=== PATIENT | male | born 1940 | race Caucasian/White ===

== ENCOUNTER 2016-04-24 16:53 | Inpatient (IN) | payer MEDICARE ==
--- NOTE | 2016-04-24 17:52 | RAD ---
INDICATION: Chest pain COMPARISON: Chest x-ray dated April 13, 2016 TECHNIQUE: Single AP portable view of the chest was obtained. FINDINGS: Image quality is compromised due to the relative inferiority of a portable chest x-ray. There appears to be mild cardiomegaly not significantly changed in the previous chest x-ray. There is fullness of the bilateral betsy more advanced at the right hilum than the left. The lungs are grossly clear. There is no evidence of a large pleural effusion. Visualized bones are normal for the patient's age. IMPRESSION: Mild cardiomegaly and right greater than left fullness of the betsy could be due to early and mild cardiogenic pulmonary edema.
[2016-04-24 17:56] LABS: Hematocrit 41 % (42-52); Hemoglobin 13.4 g/dl (14.0-18.0); Mean Corpuscular HGB Conc 33 g/dl (31-36); Mean Corpuscular Hemoglobin 28 pg (27-31); Mean Corpuscular Volume 86 fL (80-94); Mean Platelet Volume 7 um3 (7.4-10.4); Red Blood Count 4.76 10^6/ul (4.0-5.4); Red Cell Distribution Width 15 % (10.5-15); White Blood Count 11.6 10^3/ul (3.5-10.8)
[2016-04-24 18:13] LABS: BUN/Creatinine Ratio 23.9 (8-20); Calcium 10.2 mg/dL (8.6-10.3); EGFR African American 84.4 (>60); EGFR Non-African American 65.6 (>60); Potassium 3.8 mmol/L (3.5-5.0); Total Protein 7.5 g/dL (6.4-8.9)
[2016-04-24 18:14] LABS: Globulin 3.5 g/dL (2-4); Total Bilirubin 0.6 mg/dL (0.2-1.0)
[2016-04-24] MEDS ORDERED: Ondansetron INJ* 2 MG/ML VIAL ONE (18:14)
[2016-04-24] MEDS ORDERED: Ondansetron INJ* 2 MG/ML VIAL IV ONE (18:14)
[2016-04-24] MEDS ORDERED: NS 0.9% 1000 ML* 1,000 ML IV ONE ×2 (18:14→18:16)
[2016-04-24 18:16] LABS: Troponin I 0.01 ng/mL (<0.04)
[2016-04-24] MEDS ORDERED: Iodixanol* (CONTRAST) 320 MG/ML 100 ML SDV IV ONE (18:23)
--- NOTE | 2016-04-24 19:26 | RAD ---
CLINICAL HISTORY: Abdominal pain. Relevant surgical history includes "part of intestines removed" and prostatectomy. COMPARISON: Numerous previous CT examinations, most recently dated January 26, 2016 TECHNIQUE: Contrast enhanced CT examination of the abdomen and pelvis from the lung bases through the initial tuberosities. The patient received mL intravenously prior to imaging.The patient received oral contrast as well prior to imaging. FINDINGS: VISUALIZED LUNG BASES: The visualized lung bases are grossly clear. There is no pleural effusion. ABDOMEN AND PELVIS: The left lobe of the liver there is a stable 1.2 x 1.9 cm hypodensity not significantly changed since at least July 10, 2012. The liver is homogenous in attenuation the surface is smooth. The spleen and adrenal glands are grossly normal in appearance. Again seen in the tail the pancreas is a 11 mm low-density focus unchanged from the most recent CT examination and slightly larger when compared to July 10, 2012 CT examination. The gallbladder is normal. The kidneys are normal in appearance without focal mass, calcification or signs of hydronephrosis. Benign-appearing fluid density renal cysts are noted. No oral contrast has progressed as far as the rectum. The small and large bowel are not distended. The patient appears to be status post partial right colectomy. There are diverticula beginning in the descending colon, most concentrated the rectosigmoid colon. No the diverticula exhibit acute inflammatory changes. There is no gross retroperitoneal or mesenteric lymphadenopathy. Surgical clips are seen in the prostate bed consistent with the patient's history of prostatectomy. The mildly calcified abdominal aorta and iliac arteries are normal in course and diameter. Degenerative changes include multilevel loss of intervertebral disc height involving the lower thoracic and lumbar spine.There are no sinister bone lesions. IMPRESSION: 1. No acute abnormality of the abdomen or pelvis. 2. Diverticulosis without acute inflammatory change. 3. Very slowly growing cystic lesion in the tail the pancreas most consistent with a mucinous neoplasm. 4. Additional chronic, degenerative and iatrogenic findings as described in the body of the report.
--- NOTE | 2016-04-24 20:08 | RAD ---
INDICATION: Right upper quadrant pain COMPARISONS: Same day CT abdomen pelvis dated April 24, 2016 TECHNIQUE: Multiple transverse and longitudinal ultrasound images were obtained of the right upper quadrant. FINDINGS: LIVER: The liver is normal in dimensions and echogenicity. Normal hepatic and portal venous blood flow is duplicated with color flow imaging. There is no gross intrahepatic biliary duct dilatation. GALLBLADDER AND EXTRAHEPATIC BILIARY DUCT: The gallbladder is normal in appearance without intraluminal stones or other soft tissue masses. There is no pericholecystic fluid or gallbladder wall thickening. The common bile duct measures a maximum diameter of 3 mm. PANCREAS: The portions of the pancreas not obscured by bowel gas are normal in appearance. RIGHT KIDNEY: The right kidney is normal in size, morphology and echogenicity. An anechoic and avascular 1.9 cm renal cyst is noted. AORTA AND IVC: The visualized portions are normal in appearance and not pathologically dilated. IMPRESSION: NO ACUTE ABNORMALITY OF THE RIGHT UPPER QUADRANT.
--- NOTE | 2016-04-24 20:59 | RAD ---
INDICATION: Altered mental status COMPARISON: Multiple previous brain CTs, most recently dated April 13, 2016 TECHNIQUE: Contiguous axial sections of the brain were obtained from the skull base to the vertex without contrast. FINDINGS: The ventricles, cisterns and sulci exhibit stable involutional changes not significantly changed from the previous brain CT. There is moderate to severe periventricular and subcortical white matter hypoattenuation also similar in appearance to the previous CT of the brain. Otherwise the brown-white matter differentiation is adequately maintained and there is no sulcal effacement. No significant focal abnormality or mass effect is present. There is no evidence for intracranial hemorrhage. Calcified atherosclerosis is seen at the vertebral arteries in the bilateral petrous carotid arteries. No significant focal osseous abnormality is present. There is coarse lobulated calcification in the left greater than right frontal sinuses. The remaining visualized paranasal sinuses are well-aerated. The mastoid air cells are adequately aerated. IMPRESSION: Stable degenerative changes as described above without CT evidence of acute intracranial abnormality.
[2016-04-24] MEDS ORDERED: Al Hydrox/Mg Hydrox/Simet LIQ* 30 ML UDC PO PRN (22:13)
[2016-04-24] MEDS ORDERED: Senna TAB PO PRN (22:13)
[2016-04-24] MEDS ORDERED: Ondansetron INJ* 2 MG/ML VIAL IV PRN (22:13)
[2016-04-24] MEDS ORDERED: Docusate CAP* 100 MG PO PRN (22:13)
[2016-04-24] MEDS ORDERED: Dextrose 50% Syringe 50 ML* 25 GM/50 ML SYRINGE IV PUSH PRN (22:16)
[2016-04-24] MEDS ORDERED: LORazepam TAB(*) 0.5 MG PO PRN (22:17)
[2016-04-24 22:55] LABS: TSH (Thyroid Stimulating Horm) 1.69 mcIU/mL (0.34-5.60)
[2016-04-24 23:07] LABS: Urine Bacteria Absent (Absent); Urine Bilirubin Negative (Negative); Urine Glucose Negative (Negative); Urine Nitrite Negative (Negative)
[2016-04-24] MEDS: DULoxetine DR CAP* 60 MG CAP.DR PO SCH ×2 (23:19→23:50)
[2016-04-24] MEDS: Insulin GLARGINE(*) 1 UNITS UNIT SUBCUT SCH (23:24)
[2016-04-25] MEDS: CMCS Melatonin (NF) 3 MG TAB PO SCH ×2 (00:06→20:53)
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
[2016-04-25] MEDS: traMADol TAB* 50 MG PO PRN ×2 (02:28→18:27)
[2016-04-25] MEDS: Gabapentin CAP(*) 300 MG PO SCH ×2 (03:56→20:54)
[2016-04-25] MEDS: Insulin LISPRO* 1 UNITS UNIT SUBCUT SCH ×4 (08:51→17:36)
[2016-04-25] MEDS: Metoprolol Tartrate TAB* 25 MG PO SCH ×2 (09:48→20:54)
[2016-04-25] MEDS: amLODIPine TAB* 5 MG PO SCH (09:48)
[2016-04-25] MEDS: Omeprazole CAP* 20 MG PO SCH ×2 (09:49→20:53)
--- NOTE | 2016-04-25 14:40 | PN ---
Subjective Date of Service: 04/25/16 Interval History: Pt was noted to be agitated at home and brought in to ED. this aM, pleasant, conversational, but confused with minimal ability to follow commands. Pt c/o b/l shoulder pain with movement. Objective Active Medications: Acetaminophen (Tylenol Tab*) 650 mg PO Q4H PRN PRN Reason: FEVER/PAIN Al Hydrox/Mg Hydrox/Simethicone (Maalox Plus*) 30 ml PO Q6H PRN PRN Reason: INDIGESTION Amlodipine Besylate (Norvasc Tab*) 10 mg PO DAILY [facility] Last Admin: 04/25/16 09:48 Dose: 10 mg Dextrose (D50w Syringe 50 Ml*) 12.5 gm IV PUSH .FOR FS < 60 - SS PRN PRN Reason: FS < 60 Docusate Sodium (Colace Cap*) 100 mg PO BID PRN PRN Reason: CONSTIPATION Duloxetine HCl (Cymbalta Cap*) 60 mg PO BEDTIME [facility] Last Admin: 04/24/16 23:50 Dose: Not Given Gabapentin (Neurontin Cap(*)) 300 mg PO BEDTIME [facility] Last Admin: 04/25/16 03:56 Dose: 300 mg Insulin Glargine (Lantus(*)) 20 units SUBCUT 2100 [facility] Last Admin: 04/24/16 23:24 Dose: 20 unit Insulin Human Lispro (Humalog*) 0 units SUBCUT AC [facility] PRN Reason: Protocol Last Admin: 04/25/16 13:00 Dose: 2 units Melatonin (Melatonin (Nf)) 3 mg PO BEDTIME [facility] Last Admin: 04/25/16 00:06 Dose: Not Given Metoprolol Tartrate (Lopressor Tab*) 25 mg PO BID [facility] Last Admin: 04/25/16 09:48 Dose: 25 mg Omeprazole (Prilosec Cap*) 20 mg PO BID [facility] Last Admin: 04/25/16 09:49 Dose: 20 mg Ondansetron HCl (Zofran Inj*) 4 mg IV Q4H PRN PRN Reason: NAUSEA/VOMITING Senna (Senokot Tab*) 1 tab PO BID PRN PRN Reason: CONSTIPATION Tramadol HCl (Ultram*) 50 mg PO Q6H PRN PRN Reason: PAIN Last Admin: 04/25/16 02:28 Dose: 50 mg Vital Signs 04/24/16 04/24/16 04/24/16 22:44 22:53 23:00 Temperature 98 F 98 F 97.9 F Pulse Rate 73 73 72 Respiratory 16 16 16 Rate Blood Pressure 130/84 147/78 (mmHg) O2 Sat by Pulse 98 95 Oximetry 04/24/16 04/25/16 04/25/16 23:06 02:28 03:18 Temperature 97.8 F Pulse Rate 76 Respiratory 16 18 18 Rate Blood Pressure 137/67 (mmHg) O2 Sat by Pulse 91 Oximetry 04/25/16 04/25/16 04/25/16 03:56 04:28 07:16 Temperature Pulse Rate 88 Respiratory 16 16 16 Rate Blood Pressure 153/79 (mmHg) O2 Sat by Pulse 95 Oximetry 04/25/16 07:56 Temperature Pulse Rate Respiratory 16 Rate Blood Pressure (mmHg) O2 Sat by Pulse Oximetry Oxygen Devices in Use Now: None Appearance: 76 yo M in [facility], stated that his age is 79 yo, not aware of location , 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 Eyes: No Scleral Icterus, PERRLA Ears/Nose/Mouth/Throat: NL Teeth, Lips, Gums, Mucous Membranes Moist Neck: NL Appearance and Movements; NL JVP, Trachea Midline Respiratory: Symmetrical Chest Expansion and Respiratory Effort, Clear to Auscultation Cardiovascular: NL Sounds; No Murmurs; No JVD, RRR Abdominal: NL Sounds; No Tenderness; No Distention, No Hepatosplenomegaly Lymphatic: No Cervical Adenopathy Extremities: No Edema, No Clubbing, Cyanosis Skin: No Rash or Ulcers, No Nodules or Sclerosis Neurological: - - pt has difficulty following commands and refused to raise his legs off bed Result Diagrams: 04/24/16 17:41 04/24/16 17:41 Assess/Plan/Problems-Billing Assessment: Mr. Salcedo is a 76 yo male with PMH of dementia, CKD, Diabetes, HTN who had a mechanical fall and sustained a right shoulder dislocation and small ventricle bleed in 03/2016, discharged home on 04/16/2016 presents back with more confusion and h/o episodes od agitation. - Patient Problems (1) Dementia Comment: rapidly progressing, in the past 3 months. ESR >90, asked neurology to see pt in consult. PT/OT eval for placement in [facility] pending (2) Diabetes Comment: Resume home medications. (3) DVT prophylaxis Comment: SCDs due to h/o recent ICH. (4) Hypertension Comment: SBP 130-150s. Continue amlodipine, metoprolol, and HCTZ. (5) Intraductal papillary mucinous neoplasm of pancreas Comment: mildly increased in size c/w CT in 2012 for outpatient f/u with GI
[2016-04-25] MEDS ORDERED: Insulin LISPRO* 1 UNITS UNIT SUBCUT SCH (17:03)
--- NOTE | 2016-04-25 19:50 | CONS ---
CONSULTATION REPORT: DATE: 04/25/2016. PATIENT OF: Dr. Richard and Dr. Foy. HISTORY OF PRESENT ILLNESS: This is a 76-year-old man I am asked to evaluate for relatively rapid progressive dementia. He was diagnosed shortly before , but has had a rapid decrease in mental status since then and he has been violent as well and has had decreased understanding. He has also lost 15 pounds in the past few months' time and he is becoming increasingly difficult to take care of. PAST MEDICAL HISTORY: He has history of diabetes, hypertension, hyperlipidemia , history of prostate cancer, diverticulitis, GERD, chronic abdominal pain. He has fallen recently and had a small right lateral ventricular hemorrhage. MEDICATIONS: Include: 1. Lorazepam 0.5 to 1 at bedtime. 2. Amlodipine 10 daily. 3. Aspirin 81 mg daily. 4. Colace 100 b.i.d. 5. Glipizide 10 mg daily. 6. Hydrochlorothiazide 25 daily. 7. Lantus 30 to 35 at bedtime. 8. Metformin 1000 b.i.d. 9. Metoprolol 50 b.i.d. 10. Omeprazole 40 mg daily. 11. Tramadol 50 to 100 q.6 hours p.r.n. pain. 12. Zolpidem 1 tab as needed. 13. Gabapentin 300 at bedtime. 14. Cymbalta 60 at bedtime. ALLERGIES: He is allergic to DEMEROL, LISINOPRIL, PENICILLIN, BUDESONIDE. FAMILY HISTORY: Unremarkable. He does not smoke or drink. He is a retired white. SOCIAL HISTORY: He lives at home with his . REVIEW OF SYSTEMS: Negative in all 14 spheres other than in the HPI. PHYSICAL EXAM: Temperature 97.8, pulse 88, respirations 16, blood pressure 153/ 79. He is alert. He thinks he is in his 80s but does not know which year and he is only 76. He does not know the date. He notes that he is in [place], but does not know where he lives or the place. He knows he has 4 children. He speaks in one- word sentences and has difficulty following commands, although can follow one-step commands, he tends to perseverate. Cranial nerves II through XII are intact. Fundi shows red reflexes bilaterally. Motor exam revealed normal tone. He was off balance with his gait. Reflexes were 1. Toes were downgoing. Neck: Supple. Chest: Clear. Cardiovascular: Regular rate and rhythm. Abdomen: Soft and positive bowel sounds. DIAGNOSTIC STUDIES/LAB DATA: Of note, his sed rate was 91, it was 50 back on and before that it was 39. White count is 11.6, hematocrit 41, platelets 364. INR 1.14, normal PTT. Sodium 131, chloride 92, BUN 26, lactic acid now 1, glucose 128. TSH 1.69. He has had B12 of 273 in August, folic acid 9.4 but this was back in 2010. CT scan of his brain showed atrophy and markedly severe periventricular white matter disease. IMPRESSION: Mr. Salcedo has had relatively quickly progressive dementing illness without any myoclonic jerks. This could well be just due to a vascular dementia but other things are possibly given the speed, one concern is with sed rate of 91, could he have some sort of vasculitis causing this and workup such as spinal tap, CTA may be of help. He has had a past history of headaches but has no headaches recently and his temporal areas are not tender but if he needs sedation for an LP and an MRI scan, then I would consider getting a temporal artery biopsy at the same time of spinal tap. If we do it, I will send it off for routine studies, VDRL, cytology, and to save extra fluid. Before we consider doing that later this week, I would send off studies to screen for autoimmune disease such as TY, rheumatoid factor. I will repeat his B12 then I would consider getting a CTA and if those studies are negative, then perhaps we could proceed with a few studies as outlined above under sedation. [id number]/[facility] #: [id number] [facility]
[2016-04-25] MEDS: DULoxetine DR CAP* 60 MG CAP.DR PO SCH (20:53)
[2016-04-25] MEDS: Insulin GLARGINE(*) 1 UNITS UNIT SUBCUT SCH (20:55)
[2016-04-26] MEDS: traMADol TAB* 50 MG PO PRN ×2 (02:21→22:22)
[2016-04-26 05:41] LABS: Hematocrit 37 % (42-52); Hemoglobin 12.4 g/dl (14.0-18.0); Mean Corpuscular HGB Conc 34 g/dl (31-36); Mean Corpuscular Hemoglobin 29 pg (27-31); Mean Corpuscular Volume 85 fL (80-94); Mean Platelet Volume 7 um3 (7.4-10.4); Red Blood Count 4.36 10^6/ul (4.0-5.4); Red Cell Distribution Width 15 % (10.5-15); White Blood Count 8.9 10^3/ul (3.5-10.8)
[2016-04-26 05:55] LABS: Calcium 9.4 mg/dL (8.6-10.3); EGFR African American 136.1 (>60); EGFR Non-African American 105.9 (>60)
[2016-04-26] MEDS ORDERED: Potassium Chlor TAB* 20 MEQ TAB.ER PO ONE (07:37)
[2016-04-26] MEDS: Metoprolol Tartrate TAB* 25 MG PO SCH ×2 (09:30→22:21)
[2016-04-26] MEDS: Omeprazole CAP* 20 MG PO SCH ×2 (09:30→22:21)
[2016-04-26] MEDS: amLODIPine TAB* 5 MG PO SCH (09:30)
[2016-04-26] MEDS: Hydrochlorothiazide TAB* 25 MG PO SCH (09:30)
[2016-04-26] MEDS: Insulin LISPRO* 1 UNITS UNIT SUBCUT SCH ×3 (09:31→17:17)
--- NOTE | 2016-04-26 09:31 | PN ---
Subjective Date of Service: 04/26/16 Interval History: pt was noted to be pleasantly confused and cooperative in the past 24H. today he has no complaints. disoriented, Objective Active Medications: Acetaminophen (Tylenol Tab*) 650 mg PO Q4H PRN PRN Reason: FEVER/PAIN Al Hydrox/Mg Hydrox/Simethicone (Maalox Plus*) 30 ml PO Q6H PRN PRN Reason: INDIGESTION Amlodipine Besylate (Norvasc Tab*) 10 mg PO DAILY [facility] Last Admin: 04/25/16 09:48 Dose: 10 mg Dextrose (D50w Syringe 50 Ml*) 12.5 gm IV PUSH .FOR FS < 60 - SS PRN PRN Reason: FS < 60 Docusate Sodium (Colace Cap*) 100 mg PO BID PRN PRN Reason: CONSTIPATION Duloxetine HCl (Cymbalta Cap*) 60 mg PO BEDTIME [facility] Last Admin: 04/25/16 20:53 Dose: 60 mg Gabapentin (Neurontin Cap(*)) 300 mg PO BEDTIME [facility] Last Admin: 04/25/16 20:54 Dose: 300 mg Hydrochlorothiazide (Hydrodiuril Tab*) 25 mg PO DAILY [facility] Insulin Glargine (Lantus(*)) 20 units SUBCUT 2100 [facility] Last Admin: 04/25/16 20:55 Dose: 20 unit Insulin Human Lispro (Humalog*) 0 units SUBCUT 0730,1130,1630 [facility] PRN Reason: Protocol Last Admin: 04/25/16 17:36 Dose: 4 units Melatonin (Melatonin (Nf)) 3 mg PO BEDTIME [facility] Last Admin: 04/25/16 20:53 Dose: 3 mg Metoprolol Tartrate (Lopressor Tab*) 25 mg PO BID [facility] Last Admin: 04/25/16 20:54 Dose: 25 mg Omeprazole (Prilosec Cap*) 20 mg PO BID [facility] Last Admin: 04/25/16 20:53 Dose: 20 mg Ondansetron HCl (Zofran Inj*) 4 mg IV Q4H PRN PRN Reason: NAUSEA/VOMITING Senna (Senokot Tab*) 1 tab PO BID PRN PRN Reason: CONSTIPATION Tramadol HCl (Ultram*) 50 mg PO Q6H PRN PRN Reason: PAIN Last Admin: 04/26/16 02:21 Dose: 50 mg Vital Signs 04/25/16 04/25/16 04/25/16 15:22 18:27 19:52 Temperature 97.5 F 97.6 F Pulse Rate 98 109 Respiratory 20 16 16 Rate Blood Pressure 140/71 149/83 (mmHg) O2 Sat by Pulse 94 97 Oximetry 04/25/16 04/25/16 04/25/16 20:00 20:27 20:54 Temperature Pulse Rate Respiratory 16 18 18 Rate Blood Pressure (mmHg) O2 Sat by Pulse Oximetry 04/25/16 04/25/16 04/26/16 22:54 23:43 02:21 Temperature 98.0 F Pulse Rate 73 Respiratory 16 16 16 Rate Blood Pressure 148/80 (mmHg) O2 Sat by Pulse 94 Oximetry 04/26/16 04/26/16 04:21 07:37 Temperature 97.4 F Pulse Rate 73 Respiratory 14 16 Rate Blood Pressure 146/82 (mmHg) O2 Sat by Pulse 96 Oximetry Oxygen Devices in Use Now: None Appearance: 76 yo M in nAD, AAOx1 Eyes: No Scleral Icterus, PERRLA Ears/Nose/Mouth/Throat: NL Teeth, Lips, Gums, Mucous Membranes Moist Neck: NL Appearance and Movements; NL JVP, Trachea Midline Respiratory: Symmetrical Chest Expansion and Respiratory Effort, Clear to Auscultation Cardiovascular: NL Sounds; No Murmurs; No JVD, RRR Abdominal: NL Sounds; No Tenderness; No Distention, No Hepatosplenomegaly Lymphatic: No Cervical Adenopathy Extremities: No Edema, No Clubbing, Cyanosis Skin: No Rash or Ulcers, No Nodules or Sclerosis Neurological: NL Muscle Strength and Tone Result Diagrams: 04/26/16 05:09 04/26/16 05:11 Microbiology and Other Data: Microbiology 04/25/16 05:40 Aerobic Blood Culture - Preliminary Blood Venous No Growth Day 1 Anaerobic Blood Culture - Preliminary No Growth Day 1 Assess/Plan/Problems-Billing Assessment: Mr. Salcedo is a 76 yo male with PMH of dementia, CKD, Diabetes, HTN who had a mechanical fall and sustained a right shoulder dislocation and small intracranial bleed traumatic) in 03/2016, discharged home on 04/16/2016 presents back with more confusion and h/o episodes of agitation. - Patient Problems (1) Dementia Comment: rapidly progressing, in the past 3 months. ESR >90, asked neurology to see pt in consult. Dr. George recommended TY, RF, RPR, vit B12 levels, and if those are negative pt agreed to sedation for LP and MRI/MRA. Unfortunately some of the tests (TY, RF) are a send out and will not be back till early next week. Placed a call to neurology to discuss it further. PT/OT eval for placement ongoing (2) Diabetes Comment: cont metformin, holding glipizide (3) Hypertension Comment: SBP 130-150s. Continue amlodipine, metoprolol, and HCTZ. 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
[2016-04-26] MEDS: metFORMIN* 500 MG TAB PO SCH ×2 (09:40→22:19)
[2016-04-26 10:52] LABS: Syphilis Index < 0.1 Index
[2016-04-26] MEDS ORDERED: Insulin GLARGINE(*) 1 UNITS UNIT SUBCUT ONE (15:40)
[2016-04-26 17:56] LABS: BUN/Creatinine Ratio 20.2 (8-20); Calcium 9.9 mg/dL (8.6-10.3); EGFR African American 100.1 (>60); EGFR Non-African American 77.8 (>60); Potassium 3.5 mmol/L (3.5-5.0)
[2016-04-26] MEDS ORDERED: Potassium Chloride LIQUID* 20 MEQ PACKET PO ONE (19:15)
[2016-04-26] MEDS: Insulin GLARGINE(*) 1 UNITS UNIT SUBCUT SCH (22:16)
[2016-04-26] MEDS: Gabapentin CAP(*) 300 MG PO SCH (22:19)
[2016-04-26] MEDS: CMCS Melatonin (NF) 3 MG TAB PO SCH (22:28)
[2016-04-26] MEDS: DULoxetine DR CAP* 60 MG CAP.DR PO SCH (22:28)
[2016-04-27] MEDS ORDERED: Succinylcholine* 20 MG/ML 10 ML VIAL ONE (06:33)
[2016-04-27] MEDS ORDERED: Atracurium* 10 MG/ML 10 ML VIAL ONE (06:33)
[2016-04-27] MEDS ORDERED: Midazolam* 1 MG/ML 5 ML VIAL (5 MG) ONE (07:17)
--- NOTE | 2016-04-27 07:52 | EEG ---
ELECTROENCEPHALOGRAPHY: DATE OF STUDY: 04/26/2016. CLINICAL PROBLEM: This 76-year-old man is being evaluated for rapidly progressive dementia with some weight loss. MEDICINES: 1. Cymbalta. 2. Gabapentin. 3. Zolpidem. 4. Tramadol. 5. Omeprazole. 6. Metoprolol. 7. Metformin. 8. Lantus. 9. Hydrochlorothiazide. 10. Glipizide. 11. Colace. 12. Amlodipine. 13. Lorazepam. 14. Melatonin. REPORT: With the patient awake, background cerebral activity consists of moderate amplitude diffuse 6 to 7 Hz rhythm. At times, muscle movement artifacts are noted. The patient never falls asleep. No epileptiform potentials, focal abnormalities, or major asymmetries of background are noted. CLINICAL IMPRESSION: This awake EEG is abnormal because of mild diffuse slowing of background consistent with an encephalopathy, but nonspecific as to etiology. [id number]/CPS #: [id number] MTDD
--- NOTE | 2016-04-27 07:52 | ED ---
Yousif Sommers Rebecca, scribed for Real Carmichael MD on 04/24/16 at 1728 . Abdominal Pain/Male - HPI Summary HPI Summary: Pt is a 76 y/o M BIBA who presents to ED c/o abd pain. Pain began suddenly today at 0900 and has been constant since onset. Pain is diffuse abd pain with radiation to the back is characterized as sharp and is currently ranked 4/10. Sx aggravated and alleviated by nothing. Additionally c/o diarrhea, dysuria and CP. Denies N/V. IF THERE IS ONE, PLEASE SEE DICTATION BY DR. CARMICHAEL FOR FURTHER INFORMATION. - History of Current Complaint Chief Complaint: EDAbdPain Stated Complaint: ABD PAIN Time Seen by Provider: 04/24/16 17:20 Hx Obtained From: Patient Onset/Duration: Sudden Onset, Lasting Hours, Still Present Timing: Constant Severity Initially: Moderate Severity Currently: Moderate Pain Intensity: 4 Pain Scale Used: 0-10 Numeric Location: Diffuse Radiates: Yes Radiates to: Back Character: Sharp Aggravating Factor(s): Nothing Alleviating Factor(s): Nothing Associated Signs And Symptoms: Positive: Chest Pain, Urinary Symptoms - dysuria , Diarrhea. Negative: Nausea, Vomiting - Allergies/Home Medications Allergies/Adverse Reactions: Allergies Allergy/AdvReac Type Severity Reaction Status Date / Time Budesonide Allergy Intermediate Difficulty Verified 01/26/16 13:53 Breathing Meperidine [From Demerol HCl] Allergy Intermediate Difficulty Verified 01/26/16 13:53 Breathing Clarithromycin [From Biaxin] Allergy Unknown Verified 01/26/16 13:53 Reaction Details Lisinopril Allergy Coughing Verified 01/26/16 13:53 Losartan Allergy Coughing Verified 01/26/16 13:53 Penicillins Allergy Unknown Verified 01/26/16 13:53 Reaction Details PMH/Surg Hx/FS Hx/Imm Hx Endocrine/Hematology History: Reports: Hx Diabetes Denies: Hx Systemic Lupus Erythematosus Cardiovascular History: Reports: Hx Hypercholesterolemia, Hx Hypertension, Other Cardiovascular Problems/Disorders - TYPE ii DIABETIC Denies: Hx Congestive Heart Failure, Hx Pacemaker/ICD Respiratory History: Reports: Other Respiratory Problems/Disorders - HX OF PNEUMONIA GI History: Reports: Hx Diverticulosis, Hx Gastroesophageal Reflux Disease, Other GI Disorders - polyps History: Reports: Hx Benign Prostatic Hyperplasia, Hx Kidney Stones, Other Problems/Disorders - kidney stones, prostate surgery Denies: Hx Dialysis, Hx Renal Disease Musculoskeletal History: Reports: Other Musculoskeletal History - bilat knee replacements Denies: Hx Rheumatoid Arthritis, Hx Osteoporosis Sensory History: Reports: Hx Contacts or Glasses, Hx Hearing Problem Denies: Hx Hearing Aid Opthamlomology History: Reports: Hx Contacts or Glasses Neurological History: Reports: Hx Dementia, Other Neuro Impairments/Disorders - possible CVA hx Psychiatric History: Reports: Hx Panic Disorder - AGITATED ABOUT BEING IN HOSPITAL - Cancer History Cancer Type, Location and Year: prostate ca "10 years ago" Hx Chemotherapy: No - Surgical History Surgery Procedure, Year, and Place: part of intestines removed, prostatectomy, bilat knee replacement,r hand surgery Infectious Disease History: No Infectious Disease History: Denies: Traveled Outside the [place] in Last 30 Days - Family History Known Family History: Positive: Hypertension, Diabetes, Other - headache - Social History Alcohol Use: Rare Hx Substance Use: No Substance Use Type: Reports: None Hx Tobacco Use: No Smoking Status (MU): Never Smoked Tobacco Type: Cigarettes Review of Systems - ROS Summary Review of Systems Summary: IF THERE IS ONE, PLEASE SEE DICTATION BY DR. CARMICHAEL FOR FURTHER INFORMATION. Positive: Chest Pain Positive: Abdominal Pain, Diarrhea. Negative: Vomiting, Nausea Positive: dysuria All Other Systems Reviewed And Are Negative: Yes Physical Exam - Summary Physical Exam Summary: GENERAL: Awake, no acute distress, confused HEAD/FACE: Head is normocephalic, atraumatic EYES: Anicteric sclera, clear conjunctiva ENT: Mucous membranes moist, no erythema, no discharge, no lesions, neck is supple, trachea is midline, no JVD CARDIAC: Regular rate and rhythm, S1, S2, no rub, no murmur, no gallop, 2+ radial and pedal pulses bilaterally RESPIRATORY: Clear to auscultation bilaterally with no rales, rhonchi, or wheezes, non-tender ABDOMEN: Bowel sounds positive, no bruit, soft, no CVA tenderness, mild tenderness EXTREMITIES: No edema, warm, dry, moving all extremities in a grossly normal manner NEUROLOGICAL: Moving all extremities in a grossly normal manner IF THERE IS ONE, PLEASE SEE DICTATION BY DR. CARMICHAEL FOR FURTHER INFORMATION. Triage Information Reviewed: Yes Vital Signs On Initial Exam: Initial Vitals Temp Pulse Resp BP Pulse Ox 97 F 70 16 148/68 98 04/24/16 17:05 04/24/16 17:05 04/24/16 17:05 04/24/16 17:05 04/24/16 17:05 Vital Signs Reviewed: Yes Diagnostics - Vital Signs Vital Signs Temp Pulse Resp BP Pulse Ox 04/24/16 17:05 97 F 70 16 148/68 98 - Laboratory Lab Results: Lab Results 04/24/16 04/24/16 04/24/16 Range/Units 17:41 17:41 17:41 WBC 11.6 H (3.5-10.8) 10^3/ul RBC 4.76 (4.0-5.4) 10^6/ul Hgb 13.4 L (14.0-18.0) g/dl Hct 41 L (42-52) % MCV 86 (80-94) fL MCH 28 (27-31) pg MCHC 33 (31-36) g/dl RDW 15 (10.5-15) % Plt Count 364 (150-450) 10^3/ul MPV 7 L (7.4-10.4) um3 Neut % (Auto) 69.7 (38-83) % Lymph % (Auto) 18.8 L (25-47) % [place] % (Auto) 7.0 (1-9) % Eos % (Auto) 4.1 (0-6) % Baso % (Auto) 0.4 (0-2) % Absolute Neuts (auto) 8.1 H (1.5-7.7) 10^3/ul Absolute Lymphs (auto) 2.2 (1.0-4.8) 10^3/ul Absolute Monos (auto) 0.8 (0-0.8) 10^3/ul Absolute Eos (auto) 0.5 (0-0.6) 10^3/ul Absolute Basos (auto) 0 (0-0.2) 10^3/ul Absolute Nucleated RBC 0 10^3/ul Nucleated RBC % 0 INR (Anticoag Therapy) 1.14 H (0.89-1.11) APTT 32.6 (26.0-36.3) seconds Sodium 131 L (133-145) mmol/L Potassium 3.8 (3.5-5.0) mmol/L Chloride 92 L (101-111) mmol/L Carbon Dioxide 28 (22-32) mmol/L Anion Gap 11 (2-11) mmol/L BUN 26 H (6-24) mg/dL Creatinine 1.09 (0.67-1.17) mg/dL Est GFR ( Amer) 84.4 (>60) Est GFR (Non-Af Amer) 65.6 (>60) BUN/Creatinine Ratio 23.9 H (8-20) Glucose 182 H (70-100) mg/dL Lactic Acid (0.5-2.0) mmol/L Calcium 10.2 (8.6-10.3) mg/dL Total Bilirubin 0.60 (0.2-1.0) mg/dL AST 19 (13-39) U/L ALT 23 (7-52) U/L Alkaline Phosphatase 55 (34-104) U/L Total Creatine Kinase 25 (10-223) U/L CK-MB (CK-2) 2.2 (0.6-6.3) ng/mL Myoglobin 45.0 (17.4-105.7) ng/mL Troponin I 0.01 (<0.04) ng/mL B-Natriuretic Peptide ( - 100) pg/mL Total Protein 7.5 (6.4-8.9) g/dL Albumin 4.0 (3.2-5.2) g/dL Globulin 3.5 (2-4) g/dL Albumin/Globulin Ratio 1.1 (1-3) Lipase 22 (11.0-82.0) U/L TSH 1.69 (0.34-5.60) mcIU/mL 04/24/16 04/24/16 Range/Units 17:41 17:41 WBC (3.5-10.8) 10^3/ul RBC (4.0-5.4) 10^6/ul Hgb (14.0-18.0) g/dl Hct (42-52) % MCV (80-94) fL MCH (27-31) pg MCHC (31-36) g/dl RDW (10.5-15) % Plt Count (150-450) 10^3/ul MPV (7.4-10.4) um3 Neut % (Auto) (38-83) % Lymph % (Auto) (25-47) % [place] % (Auto) (1-9) % Eos % (Auto) (0-6) % Baso % (Auto) (0-2) % Absolute Neuts (auto) (1.5-7.7) 10^3/ul Absolute Lymphs (auto) (1.0-4.8) 10^3/ul Absolute Monos (auto) (0-0.8) 10^3/ul Absolute Eos (auto) (0-0.6) 10^3/ul Absolute Basos (auto) (0-0.2) 10^3/ul Absolute Nucleated RBC 10^3/ul Nucleated RBC % INR (Anticoag Therapy) (0.89-1.11) APTT (26.0-36.3) seconds Sodium (133-145) mmol/L Potassium (3.5-5.0) mmol/L Chloride (101-111) mmol/L Carbon Dioxide (22-32) mmol/L Anion Gap (2-11) mmol/L BUN (6-24) mg/dL Creatinine (0.67-1.17) mg/dL Est GFR ( Amer) (>60) Est GFR (Non-Af Amer) (>60) BUN/Creatinine Ratio (8-20) Glucose (70-100) mg/dL Lactic Acid 3.4 H* (0.5-2.0) mmol/L Calcium (8.6-10.3) mg/dL Total Bilirubin (0.2-1.0) mg/dL AST (13-39) U/L ALT (7-52) U/L Alkaline Phosphatase (34-104) U/L Total Creatine Kinase (10-223) U/L CK-MB (CK-2) (0.6-6.3) ng/mL Myoglobin (17.4-105.7) ng/mL Troponin I (<0.04) ng/mL B-Natriuretic Peptide 31 ( - 100) pg/mL Total Protein (6.4-8.9) g/dL Albumin (3.2-5.2) g/dL Globulin (2-4) g/dL Albumin/Globulin Ratio (1-3) Lipase (11.0-82.0) U/L TSH (0.34-5.60) mcIU/mL Result Diagrams: 04/26/16 05:09 04/26/16 17:30 Lab Statement: Any lab studies that have been ordered have been reviewed, and results considered in the medical decision making process. - Radiology CXR Radiology Interpretation Completed By: Radiologist - Mild cardiomegaly and right greater than left fullness of the betsy could be due to early and mild cardiogenic pulmonary edema. - CT CT Abd/Pel CT Interpretation Completed By: Radiologist - 1. No acute abnormality of the abdomen or pelvis. 2. Diverticulosis without acute inflammatory change. 3. Very slowly growing cystic lesion in the tail the pancreas most consistent with a mucinous neoplasm. 4. Additional chronic, degenerative and iatrogenic findings as described in the body of the report. Brain CT CT Interpretation Completed By: Radiologist - Stable degenerative changes as described above without CT evidence of acute intracranial abnormality. - Ultrasound No standard instances Ultrasound Interpretation Completed By: Radiologist - No acute abnormality of the RUQ - EKG 1726 Cardiac Rate: NL - 74 bpm EKG Rhythm: Sinus Rhythm - normal EKG Interpretation: no acute ischemia Abdominal Pain Fem Course/Dx - Diagnoses Provider Diagnoses: abdominal pain, ams - Provider Notifications Discussed Care Of Patient With: Dr. Romero, hospitalist, who agrees to admit pt. Time Discussed With Above Provider: 21:32 Discharge - Discharge Plan Condition: Stable Disposition: ADMITTED TO [facility] documentation as recorded by the Yousif ferrer Rebecca accurately reflects the service I personally performed and the decisions made by Amol brock Steven, MD.
[2016-04-27] MEDS: Insulin LISPRO* 1 UNITS UNIT SUBCUT SCH ×3 (08:22→17:03)
[2016-04-27] MEDS ORDERED: Gadoteridol* (CONTRAST) 279.3 MG/ML 10 ML IV ONE (08:28)
[2016-04-27] MEDS ORDERED: Gadoteridol* (CONTRAST) 279.3 MG/ML 10 ML IV SCH (09:00)
--- NOTE | 2016-04-27 09:10 | RAD ---
HISTORY: Progress dementia, rule out [employer] vasculitis COMPARISONS: December 23, 2008 TECHNIQUE: 3-D axial [id number] MR angiography was performed of the head to include the minto of [place]. Multiple 3-D maximum intensity projection reconstructions are also submitted for review. FINDINGS: The study is limited by patient motion artifact. RIGHT VERTEBRAL ARTERY: The distal right vertebral artery is unremarkable, without stenosis. LEFT VERTEBRAL ARTERY: The distal left vertebral artery is unremarkable, without stenosis. DOMINANCE: The vertebral arteries are codominant. DISTAL RIGHT CERVICAL INTERNAL CAROTID ARTERY: The distal right cervical internal carotid artery is unremarkable. DISTAL LEFT CERVICAL INTERNAL CAROTID ARTERY: The distal left cervical internal carotid artery is unremarkable. INTRACRANIAL CIRCULATION: There is no aneurysm, vascular malformation, occlusion, or stenosis of the visualized intracranial circulation. The anterior communicating artery complex is dominant over the A1 segment of the left anterior cerebral artery. This is an anatomic variant and is stable from previous examinations. The anterior communicating artery complex is clear. Bilateral posterior communicating arteries are identified. OTHER FINDINGS: None IMPRESSION: NO ANEURYSM, VASCULAR MALFORMATION, OCCLUSION, OR STENOSIS OF THE VISUALIZED INTRACRANIAL CIRCULATION. MR ANGIOGRAPHY IS RELATIVELY INSENSITIVE TO SMALL VESSEL VASCULITIDES. THIS LIMITATION IS ALSO EXACERBATED BY PATIENT MOTION ARTIFACT.
--- NOTE | 2016-04-27 09:42 | PN ---
Subjective Date of Service: 04/27/16 Interval History: pt is back from MRI. mentation at baseline. No complaints. Picking at the IV Objective Active Medications: Acetaminophen (Tylenol Tab*) 650 mg PO Q4H PRN PRN Reason: FEVER/PAIN Al Hydrox/Mg Hydrox/Simethicone (Maalox Plus*) 30 ml PO Q6H PRN PRN Reason: INDIGESTION Amlodipine Besylate (Norvasc Tab*) 10 mg PO DAILY [facility] Last Admin: 04/26/16 09:30 Dose: 10 mg Dextrose (D50w Syringe 50 Ml*) 12.5 gm IV PUSH .FOR FS < 60 - SS PRN PRN Reason: FS < 60 Docusate Sodium (Colace Cap*) 100 mg PO BID PRN PRN Reason: CONSTIPATION Duloxetine HCl (Cymbalta Cap*) 60 mg PO BEDTIME [facility] Last Admin: 04/26/16 22:28 Dose: 60 mg Gabapentin (Neurontin Cap(*)) 300 mg PO BEDTIME [facility] Last Admin: 04/26/16 22:19 Dose: 300 mg Gadoteridol (Prohance* (Contrast)) 18 ml IV ONCE [facility] Stop: 04/29/16 23:59 Hydrochlorothiazide (Hydrodiuril Tab*) 25 mg PO DAILY [facility] Last Admin: 04/26/16 09:30 Dose: 25 mg Insulin Glargine (Lantus(*)) 20 units SUBCUT 2100 [facility] Last Admin: 04/26/16 22:16 Dose: 20 unit Insulin Human Lispro (Humalog*) 0 units SUBCUT 0730,1130,1630 [facility] PRN Reason: Protocol Last Admin: 04/27/16 08:22 Dose: Not Given Melatonin (Melatonin (Nf)) 3 mg PO BEDTIME [facility] Last Admin: 04/26/16 22:28 Dose: 3 mg Metformin HCl (Glucophage*) 1,000 mg PO BID [facility] Last Admin: 04/26/16 22:19 Dose: 1,000 mg Metoprolol Tartrate (Lopressor Tab*) 25 mg PO BID [facility] Last Admin: 04/26/16 22:21 Dose: 25 mg Omeprazole (Prilosec Cap*) 20 mg PO BID [facility] Last Admin: 04/26/16 22:21 Dose: 20 mg Ondansetron HCl (Zofran Inj*) 4 mg IV Q4H PRN PRN Reason: NAUSEA/VOMITING Senna (Senokot Tab*) 1 tab PO BID PRN PRN Reason: CONSTIPATION Tramadol HCl (Ultram*) 50 mg PO Q6H PRN PRN Reason: PAIN Last Admin: 04/26/16 22:22 Dose: 50 mg Vital Signs 04/26/16 04/26/16 04/26/16 15:37 22:19 22:22 Temperature 97.7 F Pulse Rate 87 Respiratory 16 20 20 Rate Blood Pressure 128/81 (mmHg) O2 Sat by Pulse 95 Oximetry 04/26/16 04/27/16 04/27/16 22:30 00:04 00:19 Temperature 98.0 F Pulse Rate 74 Respiratory 20 16 18 Rate Blood Pressure 146/68 (mmHg) O2 Sat by Pulse 95 Oximetry 04/27/16 04/27/16 04/27/16 00:22 08:42 09:00 Temperature Pulse Rate 86 82 Respiratory 18 16 16 Rate Blood Pressure 153/81 150/83 (mmHg) O2 Sat by Pulse 97 95 Oximetry Oxygen Devices in Use Now: None Appearance: 76 yo M in NAD, AAOx1, pleasant and conversationa, recognizes present in room Eyes: No Scleral Icterus, PERRLA Ears/Nose/Mouth/Throat: NL Teeth, Lips, Gums, Mucous Membranes Moist Neck: NL Appearance and Movements; NL JVP, Trachea Midline, - - small lipoma in at the base of L neck Respiratory: Symmetrical Chest Expansion and Respiratory Effort, Clear to Auscultation Cardiovascular: NL Sounds; No Murmurs; No JVD, RRR Abdominal: NL Sounds; No Tenderness; No Distention Lymphatic: No Cervical Adenopathy Extremities: No Edema, No Clubbing, Cyanosis Skin: No Nodules or Sclerosis, - - ecchymoses on b/l upper brant in various stages of resolution. Result Diagrams: 04/26/16 05:09 04/26/16 17:30 Additional Lab and Data: Lab Results 04/24/16 04/24/16 04/24/16 Range/Units 17:41 17:41 17:41 WBC 11.6 H (3.5-10.8) 10^3/ul RBC 4.76 (4.0-5.4) 10^6/ul Hgb 13.4 L (14.0-18.0) g/dl Hct 41 L (42-52) % MCV 86 (80-94) fL MCH 28 (27-31) pg MCHC 33 (31-36) g/dl RDW 15 (10.5-15) % Plt Count 364 (150-450) 10^3/ul MPV 7 L (7.4-10.4) um3 Neut % (Auto) 69.7 (38-83) % Lymph % (Auto) 18.8 L (25-47) % [place] % (Auto) 7.0 (1-9) % Eos % (Auto) 4.1 (0-6) % Baso % (Auto) 0.4 (0-2) % Absolute Neuts (auto) 8.1 H (1.5-7.7) 10^3/ul Absolute Lymphs (auto) 2.2 (1.0-4.8) 10^3/ul Absolute Monos (auto) 0.8 (0-0.8) 10^3/ul Absolute Eos (auto) 0.5 (0-0.6) 10^3/ul Absolute Basos (auto) 0 (0-0.2) 10^3/ul Absolute Nucleated RBC 0 10^3/ul Nucleated RBC % 0 INR (Anticoag Therapy) 1.14 H (0.89-1.11) APTT 32.6 (26.0-36.3) seconds Sodium 131 L (133-145) mmol/L Potassium 3.8 (3.5-5.0) mmol/L Chloride 92 L (101-111) mmol/L Carbon Dioxide 28 (22-32) mmol/L Anion Gap 11 (2-11) mmol/L BUN 26 H (6-24) mg/dL Creatinine 1.09 (0.67-1.17) mg/dL Est GFR ( Amer) 84.4 (>60) Est GFR (Non-Af Amer) 65.6 (>60) BUN/Creatinine Ratio 23.9 H (8-20) Glucose 182 H (70-100) mg/dL Lactic Acid (0.5-2.0) mmol/L Calcium 10.2 (8.6-10.3) mg/dL Total Bilirubin 0.60 (0.2-1.0) mg/dL AST 19 (13-39) U/L ALT 23 (7-52) U/L Alkaline Phosphatase 55 (34-104) U/L Total Creatine Kinase 25 (10-223) U/L CK-MB (CK-2) 2.2 (0.6-6.3) ng/mL Myoglobin 45.0 (17.4-105.7) ng/mL Troponin I 0.01 (<0.04) ng/mL B-Natriuretic Peptide ( - 100) pg/mL Total Protein 7.5 (6.4-8.9) g/dL Albumin 4.0 (3.2-5.2) g/dL Globulin 3.5 (2-4) g/dL Albumin/Globulin Ratio 1.1 (1-3) Lipase 22 (11.0-82.0) U/L TSH 1.69 (0.34-5.60) mcIU/mL 04/24/16 04/24/16 Range/Units 17:41 17:41 WBC (3.5-10.8) 10^3/ul RBC (4.0-5.4) 10^6/ul Hgb (14.0-18.0) g/dl Hct (42-52) % MCV (80-94) fL MCH (27-31) pg MCHC (31-36) g/dl RDW (10.5-15) % Plt Count (150-450) 10^3/ul MPV (7.4-10.4) um3 Neut % (Auto) (38-83) % Lymph % (Auto) (25-47) % [place] % (Auto) (1-9) % Eos % (Auto) (0-6) % Baso % (Auto) (0-2) % Absolute Neuts (auto) (1.5-7.7) 10^3/ul Absolute Lymphs (auto) (1.0-4.8) 10^3/ul Absolute Monos (auto) (0-0.8) 10^3/ul Absolute Eos (auto) (0-0.6) 10^3/ul Absolute Basos (auto) (0-0.2) 10^3/ul Absolute Nucleated RBC 10^3/ul Nucleated RBC % INR (Anticoag Therapy) (0.89-1.11) APTT (26.0-36.3) seconds Sodium (133-145) mmol/L Potassium (3.5-5.0) mmol/L Chloride (101-111) mmol/L Carbon Dioxide (22-32) mmol/L Anion Gap (2-11) mmol/L BUN (6-24) mg/dL Creatinine (0.67-1.17) mg/dL Est GFR ( Amer) (>60) Est GFR (Non-Af Amer) (>60) BUN/Creatinine Ratio (8-20) Glucose (70-100) mg/dL Lactic Acid 3.4 H* (0.5-2.0) mmol/L Calcium (8.6-10.3) mg/dL Total Bilirubin (0.2-1.0) mg/dL AST (13-39) U/L ALT (7-52) U/L Alkaline Phosphatase (34-104) U/L Total Creatine Kinase (10-223) U/L CK-MB (CK-2) (0.6-6.3) ng/mL Myoglobin (17.4-105.7) ng/mL Troponin I (<0.04) ng/mL B-Natriuretic Peptide 31 ( - 100) pg/mL Total Protein (6.4-8.9) g/dL Albumin (3.2-5.2) g/dL Globulin (2-4) g/dL Albumin/Globulin Ratio (1-3) Lipase (11.0-82.0) U/L TSH (0.34-5.60) mcIU/mL Microbiology and Other Data: Microbiology 04/25/16 05:40 Aerobic Blood Culture - Preliminary Blood Venous No Growth Day 1 Anaerobic Blood Culture - Preliminary No Growth Day 1 Assess/Plan/Problems-Billing Assessment: Mr. Salcedo is a 76 yo male with PMH of dementia, CKD, Diabetes, HTN who had a mechanical fall and sustained a right shoulder dislocation and small intracranial bleed traumatic) in 03/2016, discharged home on 04/16/2016 presents back with more confusion and h/o episodes of agitation. - Patient Problems (1) Dementia Comment: rapidly progressing, in the past 3 months. ESR >90, asked neurology to see pt in consult. Dr. George recommended TY, RF. Vit B12 levels >300, RPR nonreactive. MRA unremarkable . MRI read pending. LP ordered PT/OT eval for placement ongoing (2) Diabetes Comment: cont metformin and ISS as well as Lantus. holding glipizide (3) Hypertension Comment: SBP 130-150s. Continue amlodipine, metoprolol, and HCTZ. 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 Status and Disposition: inpatient, for STR once diagnostic studies completed
--- NOTE | 2016-04-27 09:55 | RAD ---
HISTORY: Progressive dementia COMPARISONS: Head CT dated April 13, 2016, MRI of the head dated December 23, 2008 TECHNIQUE: The following sequences were obtained of the head: Sagittal T1-weighted images, axial T2-weighted images, axial FLAIR images, axial susceptibility weighted images, axial T1-weighted images. Additionally, axial diffusion-weighted images were obtained with calculated apparent diffusion coefficients. Additionally, sagittal, coronal, and axial T1-weighted images were obtained after contrast enhancement with a gadolinium-based intravenous contrast agent. FINDINGS: HEMORRHAGE/INFARCT: There is no hemorrhage or acute infarct. MASSES/SHIFT: There is no mass or shift. EXTRA-AXIAL SPACES/MENINGES: There are no extra-axial fluid collections. SULCI AND VENTRICLES: There is mild diffuse and proportional enlargement of the sulci and ventricles. CEREBRUM: There is diffuse confluent elevated T2/FLAIR signal within the periventricular and subcortical white matter. This is extensive and has increased from December 23, 2008. BRAINSTEM: There is minimal elevated T2/FLAIR signal within the pontine white matter. CEREBELLUM: There are no focal parenchymal abnormalities. The cerebellar tonsils are normal in size and position. SELLA: The sella is normal. PINEAL: The pineal region is clear. CP ANGLE/TEMPORAL BONES: The labyrinthine structures are grossly normal. VESSELS: Normal flow-voids are noted within the visualized vertebral vasculature. DIFFUSION ABNORMALITIES: There are no diffusion abnormalities. PARANASAL SINUSES/MASTOIDS: The paranasal sinuses are clear. ORBITS: The orbits are unremarkable. BONES AND SOFT TISSUE: No bone or soft tissue abnormalities are noted. OTHER: There is no abnormal enhancement. IMPRESSION: 1. THERE IS EXTENSIVE ABNORMAL SIGNAL IN THE PERIVENTRICULAR AND SUBCORTICAL WHITE MATTER AND TO LESSER EXTENT OF THE PONTINE WHITE MATTER. THIS IS PROGRESSED FROM THE 2008 EXAMINATION. 2. THE IMAGING APPEARANCE IS NONSPECIFIC, THOUGH THE DIFFERENTIAL DOES INCLUDE CHRONIC SMALL VESSEL ISCHEMIA, WELL SMALL VESSEL VASCULITIS, THOUGH THERE IS NO ASSOCIATED ABNORMAL ENHANCEMENT TO SUGGEST ACUTE ACTIVE INFLAMMATION. TOXIC/METABOLIC LEUKOENCEPHALOPATHIES INCLUDING MITOCHONDRIAL DISORDERS ARE ALSO WITHIN THE DIFFERENTIAL. ADVANCED DEMYELINATING DISEASE IS ALSO WITHIN THE DIFFERENTIAL BUT IS CONSIDERED LESS LIKELY IN THE ABSENCE OF THE APPROPRIATE CLINICAL PRESENTATION.
[2016-04-27] MEDS: metFORMIN* 500 MG TAB PO SCH ×3 (10:54→21:05)
[2016-04-27] MEDS: Omeprazole CAP* 20 MG PO SCH ×3 (10:54→21:02)
[2016-04-27] MEDS: amLODIPine TAB* 5 MG PO SCH ×2 (10:54→13:55)
[2016-04-27] MEDS: Metoprolol Tartrate TAB* 25 MG PO SCH ×3 (10:55→21:08)
[2016-04-27] MEDS: Hydrochlorothiazide TAB* 25 MG PO SCH ×2 (10:55→13:55)
[2016-04-27] MEDS ORDERED: KETAMINE HCL* 50 MG/ML 10 ML VIAL ONE (11:41)
[2016-04-27] MEDS ORDERED: Midazolam* 1 MG/ML 2 ML VIAL (2 MG) ONE (12:24)
[2016-04-27] MEDS ORDERED: fentaNYL* 50 MCG/ML 2 ML VIAL (100 MCG VIAL) ONE (12:24)
[2016-04-27 13:01] LABS: CSF Glucose 74 mg/dL (40-70)
[2016-04-27 14:11] LABS: Body Fluid Appearance Clear; Body Fluid Total Cells Counted 50
[2016-04-27 14:12] LABS: BF RBC Count #1 306; BF RBC Count #2 326; BF WBC Count #1 1; BF WBC Count #2 0; Body Fluid WBC 1 /mcL; RBC counts within 6%? Yes; WBC counts within 15%? Yes
[2016-04-27 15:22] LABS: BUN/Creatinine Ratio 21.6 (8-20); Calcium 9.7 mg/dL (8.6-10.3); Potassium 3.8 mmol/L (3.5-5.0)
[2016-04-27 16:10] LABS: Rheumatoid Factor <15 IU/mL (<15)
[2016-04-27] MEDS: Gabapentin CAP(*) 300 MG PO SCH (21:01)
[2016-04-27] MEDS: Insulin GLARGINE(*) 1 UNITS UNIT SUBCUT SCH (21:04)
[2016-04-27] MEDS: DULoxetine DR CAP* 60 MG CAP.DR PO SCH (21:08)
[2016-04-27] MEDS: CMCS Melatonin (NF) 3 MG TAB PO SCH (21:08)
[2016-04-28 06:22] LABS: BUN/Creatinine Ratio 22.1 (8-20); Calcium 9.3 mg/dL (8.6-10.3); EGFR African American 145.4 (>60); EGFR Non-African American 113.1 (>60); Potassium 3.3 mmol/L (3.5-5.0)
--- NOTE | 2016-04-28 07:13 | PM ---
PAIN MANAGEMENT NOTE: DATE OF VISIT/DICTATION: 04/27/16 - ROOM #406 HISTORY OF PRESENT ILLNESS: I had the pleasure of seeing Mr. Anthony Salcedo at the [facility] today. Mr. Salcedo is a very pleasant 76- year-old male who unfortunately has been brought to the hospital by his for evaluation of acute altered mental status change. Of note, the patient does have history of severe dementia, but per his , he has shown a significant change as well as waxing and waning concentration in mental status as of late. He is currently admitted to the hospital and being evaluated for this altered mental status with neurology consulting. At this point Anesthesia has been consulted to perform a lumbar puncture for the patient. The patient did have MRI this morning noting no major intracranial space occupying lesions. He is not on any blood thinners at home per his 's report and has not been on any anticoagulants in the hospital per his attending's report as well as per his electronic medical record summary. PAST MEDICAL HISTORY: All reviewed prior to the procedure and are documented in the patient's chart. SOCIAL HISTORY: All reviewed prior to the procedure and are documented in the patient's chart. MEDICATIONS: All reviewed prior to the procedure and are documented in the patient's chart. ALLERGIES: All reviewed prior to the procedure and are documented in the patient's chart. He has no history of chronic disorders in the past per his 's report. The patient was consented through his due to his altered mental status. He was slightly combative throughout the entire procedure. Assistance was provided by Dr. Leggett in both the spinal as well as the sedation. The patient received 2 mg of Versed total as well as 100 mcg of fentanyl along with 75 mg of ketamine. He was observed with standard anesthesia monitors and remained stable through the entire procedure. PROCEDURE SUMMARY: PROCEDURE PERFORMED: Lumbar puncture. DESCRIPTION OF PROCEDURE: The patient's back was prepped and draped in the usual sterile manner. A total of 8 cc of 1% lidocaine plain was used to anesthetize the skin. A 20-gauge introducer along with 25-gauge Pencan as well as a 20-gauge spinal needle was used to access the intrathecal space. A total of 3 needle passes was used in an effort to perform the large volume tap as requested by Neurology as well as to obtain the adequate amount of CSF. A total of 18 cc of CSF was withdrawn and opening pressure was found to be 15.5 cmH20 in the lateral position. The CSF was sent to the lab as requested for further analysis. The patient did not note any paresthesias. He noted no focal neurological deficits from the procedure. He tolerated the procedure well and was subsequently brought to the PACU for recovery due to sedation. His questions were answered and his concerns were adequately addressed at today' s procedure with his as well. Written consent was obtained. Thank you for allowing me to participate in the care of this patient, please do not hesitate to call with further questions. [id number]/[facility] #: [id number] ERROL
[2016-04-28] MEDS: Omeprazole CAP* 20 MG PO SCH ×2 (08:48→20:44)
[2016-04-28] MEDS: Hydrochlorothiazide TAB* 25 MG PO SCH (08:48)
[2016-04-28] MEDS: Metoprolol Tartrate TAB* 25 MG PO SCH ×2 (08:48→20:45)
[2016-04-28] MEDS: amLODIPine TAB* 5 MG PO SCH (08:49)
[2016-04-28] MEDS: predniSONE TAB* 20 MG PO SCH (08:50)
[2016-04-28] MEDS: metFORMIN* 500 MG TAB PO SCH ×2 (08:50→20:44)
[2016-04-28] MEDS: Insulin LISPRO* 1 UNITS UNIT SUBCUT SCH ×3 (08:52→17:35)
[2016-04-28] MEDS ORDERED: Potassium Chloride LIQUID* 20 MEQ PACKET PO ONE (09:00)
--- NOTE | 2016-04-28 09:00 | PN ---
Subjective Date of Service: 04/28/16 Interval History: Pt feels tired today and "everything hurts". Said that he is in "[place]". Objective Active Medications: Acetaminophen (Tylenol Tab*) 650 mg PO Q4H PRN PRN Reason: FEVER/PAIN Al Hydrox/Mg Hydrox/Simethicone (Maalox Plus*) 30 ml PO Q6H PRN PRN Reason: INDIGESTION Amlodipine Besylate (Norvasc Tab*) 10 mg PO DAILY [facility] Last Admin: 04/27/16 13:55 Dose: Not Given Dextrose (D50w Syringe 50 Ml*) 12.5 gm IV PUSH .FOR FS < 60 - SS PRN PRN Reason: FS < 60 Docusate Sodium (Colace Cap*) 100 mg PO BID PRN PRN Reason: CONSTIPATION Duloxetine HCl (Cymbalta Cap*) 60 mg PO BEDTIME [facility] Last Admin: 04/27/16 21:08 Dose: 60 mg Gabapentin (Neurontin Cap(*)) 300 mg PO BEDTIME [facility] Last Admin: 04/27/16 21:01 Dose: 300 mg Gadoteridol (Prohance* (Contrast)) 18 ml IV ONCE [facility] Stop: 04/29/16 23:59 Hydrochlorothiazide (Hydrodiuril Tab*) 25 mg PO DAILY [facility] Last Admin: 04/27/16 13:55 Dose: Not Given Insulin Glargine (Lantus(*)) 20 units SUBCUT 2100 [facility] Last Admin: 04/27/16 21:04 Dose: 20 unit Insulin Human Lispro (Humalog*) 0 units SUBCUT 0730,1130,1630 [facility] PRN Reason: Protocol Last Admin: 04/27/16 17:03 Dose: 4 units Melatonin (Melatonin (Nf)) 3 mg PO BEDTIME [facility] Last Admin: 04/27/16 21:08 Dose: 3 mg Metformin HCl (Glucophage*) 1,000 mg PO BID [facility] Last Admin: 04/27/16 21:05 Dose: 1,000 mg Metoprolol Tartrate (Lopressor Tab*) 25 mg PO BID [facility] Last Admin: 04/27/16 21:08 Dose: 25 mg Omeprazole (Prilosec Cap*) 20 mg PO BID [facility] Last Admin: 04/27/16 21:02 Dose: 20 mg Ondansetron HCl (Zofran Inj*) 4 mg IV Q4H PRN PRN Reason: NAUSEA/VOMITING Potassium Chloride (Klor-Con Liquid*) 40 meq PO ONCE ONE Stop: 04/28/16 09:01 Prednisone (Deltasone Tab*) 60 mg PO DAILY [facility] Senna (Senokot Tab*) 1 tab PO BID PRN PRN Reason: CONSTIPATION Tramadol HCl (Ultram*) 50 mg PO Q6H PRN PRN Reason: PAIN Last Admin: 04/26/16 22:22 Dose: 50 mg Vital Signs 04/27/16 04/27/16 04/27/16 08:42 09:00 09:56 Temperature 97.3 F Pulse Rate 86 82 88 Respiratory 16 16 16 Rate Blood Pressure 153/81 150/83 142/81 (mmHg) O2 Sat by Pulse 97 95 95 Oximetry 04/27/16 04/27/16 04/27/16 11:22 12:26 12:34 Temperature 100.0 F Pulse Rate 101 98 Respiratory 16 22 22 Rate Blood Pressure 174/91 169/86 (mmHg) O2 Sat by Pulse 94 95 Oximetry 04/27/16 04/27/16 04/27/16 12:45 13:04 13:16 Temperature 99.5 F 98.0 F 98 F Pulse Rate 97 94 96 Respiratory 22 16 16 Rate Blood Pressure 169/86 149/86 149/86 (mmHg) O2 Sat by Pulse 97 99 99 Oximetry 04/27/16 04/27/16 04/27/16 13:34 14:24 15:34 Temperature 98.4 F 96.9 F 98.0 F Pulse Rate 112 121 129 Respiratory 18 18 20 Rate Blood Pressure 177/89 141/73 147/79 (mmHg) O2 Sat by Pulse 95 96 96 Oximetry 04/27/16 04/27/16 04/27/16 16:11 21:00 21:01 Temperature Pulse Rate Respiratory 20 20 Rate Blood Pressure (mmHg) O2 Sat by Pulse 96 Oximetry 04/27/16 04/27/16 04/28/16 23:01 23:45 04:07 Temperature 98.1 F 97.8 F Pulse Rate 64 76 Respiratory 20 18 18 Rate Blood Pressure 152/82 153/83 (mmHg) O2 Sat by Pulse 95 96 Oximetry 04/28/16 07:56 Temperature 97.9 F Pulse Rate 89 Respiratory 16 Rate Blood Pressure 160/87 (mmHg) O2 Sat by Pulse 95 Oximetry Oxygen Devices in Use Now: None Appearance: 76 yo M in n[place], oriented to self, pleasant and conversational, able to follow commands Eyes: No Scleral Icterus, PERRLA Ears/Nose/Mouth/Throat: NL Teeth, Lips, Gums, Mucous Membranes Moist Neck: NL Appearance and Movements; NL JVP, Trachea Midline Respiratory: Symmetrical Chest Expansion and Respiratory Effort, Clear to Auscultation Cardiovascular: NL Sounds; No Murmurs; No JVD, RRR Abdominal: NL Sounds; No Tenderness; No Distention Lymphatic: No Cervical Adenopathy Extremities: No Edema, No Clubbing, Cyanosis Skin: No Rash or Ulcers, No Nodules or Sclerosis Neurological: NL Muscle Strength and Tone Result Diagrams: 04/26/16 05:09 04/28/16 05:44 Additional Lab and Data: Lab Results 04/24/16 04/24/16 04/24/16 Range/Units 17:41 17:41 17:41 WBC 11.6 H (3.5-10.8) 10^3/ul RBC 4.76 (4.0-5.4) 10^6/ul Hgb 13.4 L (14.0-18.0) g/dl Hct 41 L (42-52) % MCV 86 (80-94) fL MCH 28 (27-31) pg MCHC 33 (31-36) g/dl RDW 15 (10.5-15) % Plt Count 364 (150-450) 10^3/ul MPV 7 L (7.4-10.4) um3 Neut % (Auto) 69.7 (38-83) % Lymph % (Auto) 18.8 L (25-47) % Kerr % (Auto) 7.0 (1-9) % Eos % (Auto) 4.1 (0-6) % Baso % (Auto) 0.4 (0-2) % Absolute Neuts (auto) 8.1 H (1.5-7.7) 10^3/ul Absolute Lymphs (auto) 2.2 (1.0-4.8) 10^3/ul Absolute Monos (auto) 0.8 (0-0.8) 10^3/ul Absolute Eos (auto) 0.5 (0-0.6) 10^3/ul Absolute Basos (auto) 0 (0-0.2) 10^3/ul Absolute Nucleated RBC 0 10^3/ul Nucleated RBC % 0 INR (Anticoag Therapy) 1.14 H (0.89-1.11) APTT 32.6 (26.0-36.3) seconds Sodium 131 L (133-145) mmol/L Potassium 3.8 (3.5-5.0) mmol/L Chloride 92 L (101-111) mmol/L Carbon Dioxide 28 (22-32) mmol/L Anion Gap 11 (2-11) mmol/L BUN 26 H (6-24) mg/dL Creatinine 1.09 (0.67-1.17) mg/dL Est GFR ( Amer) 84.4 (>60) Est GFR (Non-Af Amer) 65.6 (>60) BUN/Creatinine Ratio 23.9 H (8-20) Glucose 182 H (70-100) mg/dL Lactic Acid (0.5-2.0) mmol/L Calcium 10.2 (8.6-10.3) mg/dL Total Bilirubin 0.60 (0.2-1.0) mg/dL AST 19 (13-39) U/L ALT 23 (7-52) U/L Alkaline Phosphatase 55 (34-104) U/L Total Creatine Kinase 25 (10-223) U/L CK-MB (CK-2) 2.2 (0.6-6.3) ng/mL Myoglobin 45.0 (17.4-105.7) ng/mL Troponin I 0.01 (<0.04) ng/mL B-Natriuretic Peptide ( - 100) pg/mL Total Protein 7.5 (6.4-8.9) g/dL Albumin 4.0 (3.2-5.2) g/dL Globulin 3.5 (2-4) g/dL Albumin/Globulin Ratio 1.1 (1-3) Lipase 22 (11.0-82.0) U/L TSH 1.69 (0.34-5.60) mcIU/mL 04/24/16 04/24/16 Range/Units 17:41 17:41 WBC (3.5-10.8) 10^3/ul RBC (4.0-5.4) 10^6/ul Hgb (14.0-18.0) g/dl Hct (42-52) % MCV (80-94) fL MCH (27-31) pg MCHC (31-36) g/dl RDW (10.5-15) % Plt Count (150-450) 10^3/ul MPV (7.4-10.4) um3 Neut % (Auto) (38-83) % Lymph % (Auto) (25-47) % Kerr % (Auto) (1-9) % Eos % (Auto) (0-6) % Baso % (Auto) (0-2) % Absolute Neuts (auto) (1.5-7.7) 10^3/ul Absolute Lymphs (auto) (1.0-4.8) 10^3/ul Absolute Monos (auto) (0-0.8) 10^3/ul Absolute Eos (auto) (0-0.6) 10^3/ul Absolute Basos (auto) (0-0.2) 10^3/ul Absolute Nucleated RBC 10^3/ul Nucleated RBC % INR (Anticoag Therapy) (0.89-1.11) APTT (26.0-36.3) seconds Sodium (133-145) mmol/L Potassium (3.5-5.0) mmol/L Chloride (101-111) mmol/L Carbon Dioxide (22-32) mmol/L Anion Gap (2-11) mmol/L BUN (6-24) mg/dL Creatinine (0.67-1.17) mg/dL Est GFR ( Amer) (>60) Est GFR (Non-Af Amer) (>60) BUN/Creatinine Ratio (8-20) Glucose (70-100) mg/dL Lactic Acid 3.4 H* (0.5-2.0) mmol/L Calcium (8.6-10.3) mg/dL Total Bilirubin (0.2-1.0) mg/dL AST (13-39) U/L ALT (7-52) U/L Alkaline Phosphatase (34-104) U/L Total Creatine Kinase (10-223) U/L CK-MB (CK-2) (0.6-6.3) ng/mL Myoglobin (17.4-105.7) ng/mL Troponin I (<0.04) ng/mL B-Natriuretic Peptide 31 ( - 100) pg/mL Total Protein (6.4-8.9) g/dL Albumin (3.2-5.2) g/dL Globulin (2-4) g/dL Albumin/Globulin Ratio (1-3) Lipase (11.0-82.0) U/L TSH (0.34-5.60) mcIU/mL Microbiology and Other Data: Microbiology 04/25/16 05:40 Aerobic Blood Culture - Preliminary Blood Venous No Growth Day 1 Anaerobic Blood Culture - Preliminary No Growth Day 1 Assess/Plan/Problems-Billing Assessment: Mr. Salcedo is a 76 yo male with PMH of dementia, CKD, Diabetes, HTN who had a mechanical fall and sustained a right shoulder dislocation and small intracranial bleed traumatic) in 03/2016, discharged home on 04/16/2016 presents back with more confusion and h/o episodes of agitation. - Patient Problems (1) Dementia Comment: rapidly progressing, in the past 3 months. ESR >90, asked neurology to see pt in consult. Dr. George recommended TY, RF- pending. Vit B12 levels >300, RPR nonreactive. HIV test pending. MRA unremarkable . MRI shows abnormal enhancement in periventricular white matter. LP had 15.5 opening pressure. 18 ml were obtained. Protein >200, glucose 74, WBC 1. D/w ID and Dr. George. studies and cultures are still pending. Protein 14-3-13 from CSF to evel for Creutzfeldt Zhang was ordered from CSF. PT eval after large volume LP was difficult to eval due to pt not cooperating, but pt was amble to ambulate after the LP. mentation was unchanged. today pt feels tired. We will observe ambulation, mentation unchanged. as per phone conversation with Dr. George on 04/27/16 : anti Hu antb ordered to r /o paraneoplastic syndrome. Dr George also recommended starting pt on Prednisone 60 mg daily today empirically since with high ESR and MRI changes autoimmune condition is likley. (2) Diabetes Comment: cont metformin and ISS as well as Lantus. will restart glipizide. monitor sugars in light of steroid tx. (3) Hypertension Comment: SBP 130-150s. Continue amlodipine, metoprolol, and HCTZ. 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 Status and Disposition: inpatient, for STR -most likely on Saturday.
[2016-04-28] MEDS: glipiZIDE TAB.XL* 5 MG PO SCH (09:46)
[2016-04-28] MEDS: Acetaminophen TAB* 325 MG PO PRN (12:34)
--- NOTE | 2016-04-28 12:44 | PN ---
Progress Note - Progress Note SOAP: Neurology progress note Date of service 04/28/16 Subjective: Patient completed LP and MRI yesterday. The CSF protein is significantly elevated. When I examined the patient today he did not have any particular complaint or symptoms. Objective: Vital Signs Temp Pulse Resp BP Pulse Ox 97.9 F 89 18 160/87 95 04/28/16 07:56 04/28/16 07:56 04/28/16 08:00 04/28/16 07:56 04/28/16 08:00 Current Medications Acetaminophen (Tylenol Tab*) 650 mg PO Q4H PRN PRN Reason: FEVER/PAIN Last Admin: 04/28/16 12:34 Dose: 650 mg Al Hydrox/Mg Hydrox/Simethicone (Maalox Plus*) 30 ml PO Q6H PRN PRN Reason: INDIGESTION Amlodipine Besylate (Norvasc Tab*) 10 mg PO DAILY [facility] Last Admin: 04/28/16 08:49 Dose: 10 mg Dextrose (D50w Syringe 50 Ml*) 12.5 gm IV PUSH .FOR FS < 60 - SS PRN PRN Reason: FS < 60 Docusate Sodium (Colace Cap*) 100 mg PO BID PRN PRN Reason: CONSTIPATION Duloxetine HCl (Cymbalta Cap*) 60 mg PO BEDTIME [facility] Last Admin: 04/27/16 21:08 Dose: 60 mg Gabapentin (Neurontin Cap(*)) 300 mg PO BEDTIME [facility] Last Admin: 04/27/16 21:01 Dose: 300 mg Gadoteridol (Prohance* (Contrast)) 18 ml IV ONCE [facility] Stop: 04/29/16 23:59 Glipizide (Glucotrol Xl*) 10 mg PO DAILY [facility] Last Admin: 04/28/16 09:46 Dose: 10 mg Heparin Sodium (Porcine) (Heparin Vial(*)) 5,000 units SUBCUT Q8HR [facility] Hydrochlorothiazide (Hydrodiuril Tab*) 25 mg PO DAILY [facility] Last Admin: 04/28/16 08:48 Dose: 25 mg Insulin Glargine (Lantus(*)) 20 units SUBCUT 2100 [facility] Last Admin: 04/27/16 21:04 Dose: 20 unit Insulin Human Lispro (Humalog*) 0 units SUBCUT 0730,1130,1630 [facility] PRN Reason: Protocol Last Admin: 04/28/16 12:33 Dose: 6 units Melatonin (Melatonin (Nf)) 3 mg PO BEDTIME [facility] Last Admin: 04/27/16 21:08 Dose: 3 mg Metformin HCl (Glucophage*) 1,000 mg PO BID [facility] Last Admin: 04/28/16 08:50 Dose: 1,000 mg Metoprolol Tartrate (Lopressor Tab*) 25 mg PO BID [facility] Last Admin: 04/28/16 08:48 Dose: 25 mg Omeprazole (Prilosec Cap*) 20 mg PO BID [facility] Last Admin: 04/28/16 08:48 Dose: 20 mg Ondansetron HCl (Zofran Inj*) 4 mg IV Q4H PRN PRN Reason: NAUSEA/VOMITING Prednisone (Deltasone Tab*) 60 mg PO DAILY [facility] Last Admin: 04/28/16 08:50 Dose: 60 mg Senna (Senokot Tab*) 1 tab PO BID PRN PRN Reason: CONSTIPATION Tramadol HCl (Ultram*) 50 mg PO Q6H PRN PRN Reason: PAIN Last Admin: 04/26/16 22:22 Dose: 50 mg Laboratory Results - last 24 hr 04/26/16 04/27/16 04/27/16 11:44 12:00 12:00 Sodium Potassium Chloride Carbon Dioxide Anion Gap BUN Creatinine Est GFR ( Amer) Est GFR (Non-Af Amer) BUN/Creatinine Ratio Glucose POC Glucose (mg/dL) Calcium Fluid Source Cerebral spinal Fluid Volume 2.5 Fluid Color Colorless Fluid Appearance Clear Fluid WBC 1 Fluid RBC 316 Fluid Tot Cell Count 50 Fluid Neutrophils Not Reportable Fluid Lymphocytes 66 Fluid Monocytes 34 Fluid Other Cells 14 Fluid Cell Count Rvw By CSF Cell Count Tube # 4 CSF Glucose 74 H CSF Total Protein 255 H Rheumatoid Factor <15 Anti-Nuclear Antibody 0.4 04/27/16 04/27/16 04/28/16 14:29 16:36 05:44 Sodium 135 140 Potassium 3.8 3.3 L Chloride 104 101 Carbon Dioxide 26 29 Anion Gap 5 10 BUN 19 15 Creatinine 0.88 0.68 Est GFR ( Amer) 108.0 145.4 Est GFR (Non-Af Amer) 84.0 113.1 BUN/Creatinine Ratio 21.6 H 22.1 H Glucose 222 H 74 POC Glucose (mg/dL) 242 H Calcium 9.7 9.3 Fluid Source Fluid Volume Fluid Color Fluid Appearance Fluid WBC Fluid RBC Fluid Tot Cell Count Fluid Neutrophils Fluid Lymphocytes Fluid Monocytes Fluid Other Cells Fluid Cell Count Rvw By CSF Cell Count Tube # CSF Glucose CSF Total Protein Rheumatoid Factor Anti-Nuclear Antibody 04/28/16 04/28/16 07:40 12:15 Sodium Potassium Chloride Carbon Dioxide Anion Gap BUN Creatinine Est GFR ( Amer) Est GFR (Non-Af Amer) BUN/Creatinine Ratio Glucose POC Glucose (mg/dL) 102 259 H Calcium Fluid Source Fluid Volume Fluid Color Fluid Appearance Fluid WBC Fluid RBC Fluid Tot Cell Count Fluid Neutrophils Fluid Lymphocytes Fluid Monocytes Fluid Other Cells Fluid Cell Count Rvw By CSF Cell Count Tube # CSF Glucose CSF Total Protein Rheumatoid Factor Anti-Nuclear Antibody On exam, the patient is able to give me his , but not oriented to date (just says it is fall, not oriented to month, year or season). He is able to follow 2 step commands. pupils are symmetric and reactive. Face symmetric. Tongue midline. Strength seems 5/5 with limited cooperation. Assessment: 76 year old male with history of 3 months worsening of altered mental status. Workup so far shows no WBC in CSF; MRA negative, so vasculitis becomes less likely, although not completely ruled out. With elevated ESR autoimmunce or paraneoplastic encephalopathy are still on top of the list. TSH and thyroid hormones not elevated (have low suspicion for Diallo's Encephalitis). Already started on empiric steroids. Will monitor for response.
[2016-04-28] MEDS: Heparin VIAL(*) 5000 UNITS/ML VIAL (FIVE THOUSAND) SUBCUT SCH ×2 (14:34→21:08)
--- NOTE | 2016-04-28 17:35 | PN ---
NEUROLOGICAL FOLLOWUP: DATE OF SERVICE: 04/27/16 PATIENT OF: Dr. Richard. HISTORY: Anthony is confused but has no specific complaints. MEDICATIONS: 2. Norvasc. 3. Colace. 4. Cymbalta. 5. Neurontin. 6. Hydrochlorothiazide. 7. Insulin. PHYSICAL EXAMINATION: Temperature 98, pulse 129, respirations 20, blood pressure 147/79. I evaluated him after his spinal tap and he remained confused , he knew his name, he barely remembers that his age is in [place]. He did not know the year. He had good power in all extremities with some clumsiness. Chest: Clear. Cardiovascular: Regular rate and rhythm without murmur. Abdomen : Soft with positive bowel sounds. DIAGNOSTIC STUDIES/LAB DATA: His spinal tap had 316 red's, 1 white with a protein of 255, glucose of 74 and other studies are pending. His TY is pending. Rheumatoid factor less than 15. . I reviewed his MRI/MRA. I reviewed MRI brain He has had white matter disease worsening from his 2009 exam. There is no significant enhancement. MRA did not show any large vessel vascular abnormalities, but small vessel vascular abnormalities cannot be excluded. ASSESSMENT AND PLAN: I discussed with Dr. Richard that the protein was quite elevated. Some studies are pending such as Zhang-Creutzfeldt and cryptococcal antigen given the elevated protein, and VDRL. Dr. Richard is to touch base with Dr. Muller to make sure that there is no other infectious etiology. Cytology was to be sent as well. Given the elevated sed rate and the elevated protein, once the spinal tap results are completed, there will be consideration of treatment of steroids and I will be signing this case out to Dr. Winn. Paraneoplastic syndrome will need to be evaluated [id number]/[facility] #: [id number] [facility]
[2016-04-28] MEDS: Gabapentin CAP(*) 300 MG PO SCH (20:44)
[2016-04-28] MEDS: CMCS Melatonin (NF) 3 MG TAB PO SCH (20:44)
[2016-04-28] MEDS: DULoxetine DR CAP* 60 MG CAP.DR PO SCH (20:44)
[2016-04-28] MEDS: Insulin GLARGINE(*) 1 UNITS UNIT SUBCUT SCH (20:45)
[2016-04-29] MEDS: Heparin VIAL(*) 5000 UNITS/ML VIAL (FIVE THOUSAND) SUBCUT SCH ×3 (05:23→21:55)
[2016-04-29] MEDS: Insulin LISPRO* 1 UNITS UNIT SUBCUT SCH ×3 (08:27→17:29)
[2016-04-29] MEDS: predniSONE TAB* 20 MG PO SCH (08:27)
[2016-04-29] MEDS: Metoprolol Tartrate TAB* 25 MG PO SCH (08:28)
[2016-04-29] MEDS: amLODIPine TAB* 5 MG PO SCH (08:28)
[2016-04-29] MEDS: Omeprazole CAP* 20 MG PO SCH ×2 (08:28→20:06)
--- NOTE | 2016-04-29 08:28 | PN ---
Subjective Date of Service: 04/29/16 Interval History: pt's mentation is unchanged. still confused, cooperative, occasional garbled speech. Pt c/o "not feeling well" cannot specify Objective Active Medications: Acetaminophen (Tylenol Tab*) 650 mg PO Q4H PRN PRN Reason: FEVER/PAIN Last Admin: 04/28/16 12:34 Dose: 650 mg Al Hydrox/Mg Hydrox/Simethicone (Maalox Plus*) 30 ml PO Q6H PRN PRN Reason: INDIGESTION Amlodipine Besylate (Norvasc Tab*) 10 mg PO DAILY [facility] Last Admin: 04/28/16 08:49 Dose: 10 mg Dextrose (D50w Syringe 50 Ml*) 12.5 gm IV PUSH .FOR FS < 60 - SS PRN PRN Reason: FS < 60 Docusate Sodium (Colace Cap*) 100 mg PO BID PRN PRN Reason: CONSTIPATION Duloxetine HCl (Cymbalta Cap*) 60 mg PO BEDTIME [facility] Last Admin: 04/28/16 20:44 Dose: 60 mg Gabapentin (Neurontin Cap(*)) 300 mg PO BEDTIME [facility] Last Admin: 04/28/16 20:44 Dose: 300 mg Gadoteridol (Prohance* (Contrast)) 18 ml IV ONCE [facility] Stop: 04/29/16 23:59 Glipizide (Glucotrol Xl*) 10 mg PO DAILY [facility] Last Admin: 04/28/16 09:46 Dose: 10 mg Heparin Sodium (Porcine) (Heparin Vial(*)) 5,000 units SUBCUT Q8HR [facility] Last Admin: 04/29/16 05:23 Dose: 5,000 units Hydrochlorothiazide (Hydrodiuril Tab*) 25 mg PO DAILY [facility] Last Admin: 04/28/16 08:48 Dose: 25 mg Insulin Glargine (Lantus(*)) 20 units SUBCUT 2100 [facility] Last Admin: 04/28/16 20:45 Dose: 20 unit Insulin Human Lispro (Humalog*) 0 units SUBCUT 0730,1130,1630 [facility] PRN Reason: Protocol Last Admin: 04/28/16 17:35 Dose: 4 units Melatonin (Melatonin (Nf)) 3 mg PO BEDTIME [facility] Last Admin: 04/28/16 20:44 Dose: 3 mg Metformin HCl (Glucophage*) 1,000 mg PO BID [facility] Last Admin: 04/28/16 20:44 Dose: 1,000 mg Metoprolol Tartrate (Lopressor Tab*) 25 mg PO BID [facility] Last Admin: 04/28/16 20:45 Dose: 25 mg Omeprazole (Prilosec Cap*) 20 mg PO BID [facility] Last Admin: 04/28/16 20:44 Dose: 20 mg Ondansetron HCl (Zofran Inj*) 4 mg IV Q4H PRN PRN Reason: NAUSEA/VOMITING Prednisone (Deltasone Tab*) 60 mg PO DAILY [facility] Last Admin: 04/28/16 08:50 Dose: 60 mg Senna (Senokot Tab*) 1 tab PO BID PRN PRN Reason: CONSTIPATION Tramadol HCl (Ultram*) 50 mg PO Q6H PRN PRN Reason: PAIN Last Admin: 04/26/16 22:22 Dose: 50 mg Vital Signs 04/28/16 04/28/16 04/28/16 12:00 15:13 20:00 Temperature 97.8 F 98.1 F Pulse Rate 68 99 Respiratory 16 20 18 Rate Blood Pressure 150/63 122/72 (mmHg) O2 Sat by Pulse 97 96 Oximetry 04/28/16 04/28/16 04/28/16 20:44 22:44 23:29 Temperature 98.4 F Pulse Rate 86 Respiratory 18 18 19 Rate Blood Pressure 160/90 (mmHg) O2 Sat by Pulse 96 Oximetry 04/29/16 04/29/16 00:00 07:52 Temperature 97.8 F Pulse Rate 89 Respiratory 18 Rate Blood Pressure 187/112 (mmHg) O2 Sat by Pulse 96 98 Oximetry Oxygen Devices in Use Now: None Appearance: 76 yo M in nAD, AAOx1 Eyes: No Scleral Icterus, PERRLA Ears/Nose/Mouth/Throat: NL Teeth, Lips, Gums, Mucous Membranes Moist Neck: NL Appearance and Movements; NL JVP, Trachea Midline Respiratory: Symmetrical Chest Expansion and Respiratory Effort, Clear to Auscultation Cardiovascular: NL Sounds; No Murmurs; No JVD, RRR Abdominal: NL Sounds; No Tenderness; No Distention Lymphatic: No Cervical Adenopathy Extremities: No Edema, No Clubbing, Cyanosis Skin: No Rash or Ulcers, No Nodules or Sclerosis Neurological: NL Muscle Strength and Tone Result Diagrams: 04/26/16 05:09 04/28/16 05:44 Additional Lab and Data: Lab Results 04/24/16 04/24/16 04/24/16 Range/Units 17:41 17:41 17:41 WBC 11.6 H (3.5-10.8) 10^3/ul RBC 4.76 (4.0-5.4) 10^6/ul Hgb 13.4 L (14.0-18.0) g/dl Hct 41 L (42-52) % MCV 86 (80-94) fL MCH 28 (27-31) pg MCHC 33 (31-36) g/dl RDW 15 (10.5-15) % Plt Count 364 (150-450) 10^3/ul MPV 7 L (7.4-10.4) um3 Neut % (Auto) 69.7 (38-83) % Lymph % (Auto) 18.8 L (25-47) % [place] % (Auto) 7.0 (1-9) % Eos % (Auto) 4.1 (0-6) % Baso % (Auto) 0.4 (0-2) % Absolute Neuts (auto) 8.1 H (1.5-7.7) 10^3/ul Absolute Lymphs (auto) 2.2 (1.0-4.8) 10^3/ul Absolute Monos (auto) 0.8 (0-0.8) 10^3/ul Absolute Eos (auto) 0.5 (0-0.6) 10^3/ul Absolute Basos (auto) 0 (0-0.2) 10^3/ul Absolute Nucleated RBC 0 10^3/ul Nucleated RBC % 0 INR (Anticoag Therapy) 1.14 H (0.89-1.11) APTT 32.6 (26.0-36.3) seconds Sodium 131 L (133-145) mmol/L Potassium 3.8 (3.5-5.0) mmol/L Chloride 92 L (101-111) mmol/L Carbon Dioxide 28 (22-32) mmol/L Anion Gap 11 (2-11) mmol/L BUN 26 H (6-24) mg/dL Creatinine 1.09 (0.67-1.17) mg/dL Est GFR ( Amer) 84.4 (>60) Est GFR (Non-Af Amer) 65.6 (>60) BUN/Creatinine Ratio 23.9 H (8-20) Glucose 182 H (70-100) mg/dL Lactic Acid (0.5-2.0) mmol/L Calcium 10.2 (8.6-10.3) mg/dL Total Bilirubin 0.60 (0.2-1.0) mg/dL AST 19 (13-39) U/L ALT 23 (7-52) U/L Alkaline Phosphatase 55 (34-104) U/L Total Creatine Kinase 25 (10-223) U/L CK-MB (CK-2) 2.2 (0.6-6.3) ng/mL Myoglobin 45.0 (17.4-105.7) ng/mL Troponin I 0.01 (<0.04) ng/mL B-Natriuretic Peptide ( - 100) pg/mL Total Protein 7.5 (6.4-8.9) g/dL Albumin 4.0 (3.2-5.2) g/dL Globulin 3.5 (2-4) g/dL Albumin/Globulin Ratio 1.1 (1-3) Lipase 22 (11.0-82.0) U/L TSH 1.69 (0.34-5.60) mcIU/mL 04/24/16 04/24/16 Range/Units 17:41 17:41 WBC (3.5-10.8) 10^3/ul RBC (4.0-5.4) 10^6/ul Hgb (14.0-18.0) g/dl Hct (42-52) % MCV (80-94) fL MCH (27-31) pg MCHC (31-36) g/dl RDW (10.5-15) % Plt Count (150-450) 10^3/ul MPV (7.4-10.4) um3 Neut % (Auto) (38-83) % Lymph % (Auto) (25-47) % [place] % (Auto) (1-9) % Eos % (Auto) (0-6) % Baso % (Auto) (0-2) % Absolute Neuts (auto) (1.5-7.7) 10^3/ul Absolute Lymphs (auto) (1.0-4.8) 10^3/ul Absolute Monos (auto) (0-0.8) 10^3/ul Absolute Eos (auto) (0-0.6) 10^3/ul Absolute Basos (auto) (0-0.2) 10^3/ul Absolute Nucleated RBC 10^3/ul Nucleated RBC % INR (Anticoag Therapy) (0.89-1.11) APTT (26.0-36.3) seconds Sodium (133-145) mmol/L Potassium (3.5-5.0) mmol/L Chloride (101-111) mmol/L Carbon Dioxide (22-32) mmol/L Anion Gap (2-11) mmol/L BUN (6-24) mg/dL Creatinine (0.67-1.17) mg/dL Est GFR ( Amer) (>60) Est GFR (Non-Af Amer) (>60) BUN/Creatinine Ratio (8-20) Glucose (70-100) mg/dL Lactic Acid 3.4 H* (0.5-2.0) mmol/L Calcium (8.6-10.3) mg/dL Total Bilirubin (0.2-1.0) mg/dL AST (13-39) U/L ALT (7-52) U/L Alkaline Phosphatase (34-104) U/L Total Creatine Kinase (10-223) U/L CK-MB (CK-2) (0.6-6.3) ng/mL Myoglobin (17.4-105.7) ng/mL Troponin I (<0.04) ng/mL B-Natriuretic Peptide 31 ( - 100) pg/mL Total Protein (6.4-8.9) g/dL Albumin (3.2-5.2) g/dL Globulin (2-4) g/dL Albumin/Globulin Ratio (1-3) Lipase (11.0-82.0) U/L TSH (0.34-5.60) mcIU/mL Microbiology and Other Data: Microbiology 04/25/16 05:40 Aerobic Blood Culture - Preliminary Blood Venous No Growth Day 1 Anaerobic Blood Culture - Preliminary No Growth Day 1 Assess/Plan/Problems-Billing Assessment: Mr. Salcedo is a 76 yo male with PMH of dementia, CKD, Diabetes, HTN who had a mechanical fall and sustained a right shoulder dislocation and small intracranial bleed traumatic) in 03/2016, discharged home on 04/16/2016 presents back with more confusion and h/o episodes of agitation. - Patient Problems (1) Dementia Comment: rapidly progressing, in the past 3 months. ESR >90, asked neurology to see pt in consult. Dr. George recommended TY -low , RF -low Vit B12 levels >300, RPR nonreactive. HIV test pending. MRA unremarkable . MRI shows abnormal enhancement in periventricular white matter. LP had 15.5 opening pressure. 18 ml were obtained. Protein >200, glucose 74, WBC 1. D/w ID and Dr. George. studies and cultures are still pending. Protein 14-3-13 from CSF to evel for Creutzfeldt Zhang was ordered from CSF. PT eval after large volume LP was difficult to eval due to pt not cooperating, mentation was unchanged. ambulates well with assist. as per phone conversation with Dr. George on 04/27/16 : anti Hu antb ordered to r /o paraneoplastic syndrome. Dr George also recommended starting pt on Prednisone 60 mg -started on 04/28/16, so far no improvement noted (2) Diabetes Comment: cont metformin and ISS as well as Lantus and glipizide. monitor sugars in light of steroid tx. (3) Hypertension Comment: uncontrolled. Continue amlodipine,HCTZ. increase lopressor from 25 to 50 mg BID (4) Intraductal papillary mucinous neoplasm of pancreas Comment: mildly increased in size c/w CT in 2012 for outpatient f/u with GI -d/w and daughter (5) DVT prophylaxis Comment: SCDs due to h/o recent ICH. Status and Disposition: inpatient, for STR -most likely on Saturday.
[2016-04-29] MEDS: Hydrochlorothiazide TAB* 25 MG PO SCH (08:29)
[2016-04-29] MEDS: metFORMIN* 500 MG TAB PO SCH ×2 (08:29→20:05)
[2016-04-29] MEDS: glipiZIDE TAB.XL* 5 MG PO SCH ×2 (08:29→08:32)
[2016-04-29] MEDS: Metoprolol Tartrate TAB* 50 mg PO SCH ×2 (08:33→20:06)
[2016-04-29 10:49] LABS: CSF VDRL Negative (Negative)
[2016-04-29] MEDS: traMADol TAB* 50 MG PO PRN (14:47)
[2016-04-29] MEDS: Acetaminophen TAB* 325 MG PO PRN (18:28)
[2016-04-29] MEDS: CMCS Melatonin (NF) 3 MG TAB PO SCH (20:05)
[2016-04-29] MEDS: DULoxetine DR CAP* 60 MG CAP.DR PO SCH (20:05)
[2016-04-29] MEDS: Gabapentin CAP(*) 300 MG PO SCH (20:06)
[2016-04-29] MEDS: Insulin GLARGINE(*) 1 UNITS UNIT SUBCUT SCH (20:06)
--- NOTE | 2016-04-29 21:48 | PN ---
Progress Note - Progress Note SOAP: Neurology progress note Date of service: 04/29/16 Subjective: I saw and examined the patient around 2pm today. He had no acute events overnight. Has been started on prednisone. He mentions having pain in whole body starting from the left arm going to the right. Objective: Vital Signs Temp Pulse Resp BP Pulse Ox 98.1 F 88 18 145/71 95 04/29/16 15:52 04/29/16 15:52 04/29/16 20:06 04/29/16 15:52 04/29/16 15:52 Laboratory Results - last 24 hr 04/27/16 04/28/16 04/29/16 12:00 05:44 07:41 POC Glucose (mg/dL) 104 CSF VDRL Negative CSF Cryptococcus Ag Negative HIV 1&2 Antibody Nonreactive 04/29/16 04/29/16 11:26 16:09 POC Glucose (mg/dL) 235 H 282 H CSF VDRL CSF Cryptococcus Ag HIV 1&2 Antibody Current Medications Acetaminophen (Tylenol Tab*) 650 mg PO Q4H PRN PRN Reason: FEVER/PAIN Last Admin: 04/29/16 18:28 Dose: 650 mg Al Hydrox/Mg Hydrox/Simethicone (Maalox Plus*) 30 ml PO Q6H PRN PRN Reason: INDIGESTION Amlodipine Besylate (Norvasc Tab*) 10 mg PO DAILY [facility] Last Admin: 04/29/16 08:28 Dose: 10 mg Dextrose (D50w Syringe 50 Ml*) 12.5 gm IV PUSH .FOR FS < 60 - SS PRN PRN Reason: FS < 60 Docusate Sodium (Colace Cap*) 100 mg PO BID PRN PRN Reason: CONSTIPATION Duloxetine HCl (Cymbalta Cap*) 60 mg PO BEDTIME [facility] Last Admin: 04/29/16 20:05 Dose: 60 mg Gabapentin (Neurontin Cap(*)) 300 mg PO BEDTIME [facility] Last Admin: 04/29/16 20:06 Dose: 300 mg Gadoteridol (Prohance* (Contrast)) 18 ml IV ONCE [facility] Stop: 04/29/16 23:59 Glipizide (Glucotrol Xl*) 10 mg PO DAILY WITH MEAL [facility] Last Admin: 04/29/16 08:32 Dose: Not Given Heparin Sodium (Porcine) (Heparin Vial(*)) 5,000 units SUBCUT Q8HR [facility] Last Admin: 04/29/16 13:00 Dose: 5,000 units Hydrochlorothiazide (Hydrodiuril Tab*) 25 mg PO DAILY [facility] Last Admin: 04/29/16 08:29 Dose: 25 mg Insulin Glargine (Lantus(*)) 20 units SUBCUT 2100 [facility] Last Admin: 04/29/16 20:06 Dose: 20 unit Insulin Human Lispro (Humalog*) 0 units SUBCUT 0730,1130,1630 [facility] PRN Reason: Protocol Last Admin: 04/29/16 17:29 Dose: 6 units Melatonin (Melatonin (Nf)) 3 mg PO BEDTIME [facility] Last Admin: 04/29/16 20:05 Dose: 3 mg Metformin HCl (Glucophage*) 1,000 mg PO BID [facility] Last Admin: 04/29/16 20:05 Dose: 1,000 mg Metoprolol Tartrate (Lopressor Tab*) 50 mg PO BID [facility] Last Admin: 04/29/16 20:06 Dose: 50 mg Omeprazole (Prilosec Cap*) 20 mg PO BID [facility] Last Admin: 04/29/16 20:06 Dose: 20 mg Ondansetron HCl (Zofran Inj*) 4 mg IV Q4H PRN PRN Reason: NAUSEA/VOMITING Prednisone (Deltasone Tab*) 60 mg PO DAILY [facility] Last Admin: 04/29/16 08:27 Dose: 60 mg Senna (Senokot Tab*) 1 tab PO BID PRN PRN Reason: CONSTIPATION Tramadol HCl (Ultram*) 50 mg PO Q6H PRN PRN Reason: PAIN Last Admin: 04/29/16 14:47 Dose: 50 mg On exam, the patient is able to give me his , but not oriented to date ( similar to yesterday, he says it is fall, not oriented to month, year or season) . He talks about the shoulder surgery he had many years ago. Certainly more articulate today compared to yesterday, but most of the content of his speech is irrelevant and incomprehensible. He is able to follow 2 step commands. pupils are symmetric and reactive. Face symmetric. Tongue midline. Strength seems 5/5 with limited cooperation. Assessment and Plan: 76 year old male with history of 3 months worsening of altered mental status. Workup so far shows no WBC in CSF; MRA negative. Autoimmune panel pending. Anti BRADEN was sent. No abnormality in thyroid function to suggest Diallo's Encephalitis. Have been started on empiric steroids. Will monitor for response for the next few days.
[2016-04-30] MEDS: Heparin VIAL(*) 5000 UNITS/ML VIAL (FIVE THOUSAND) SUBCUT SCH ×3 (05:27→20:34)
[2016-04-30] MEDS: Insulin LISPRO* 1 UNITS UNIT SUBCUT SCH ×3 (07:26→17:23)
[2016-04-30] MEDS: predniSONE TAB* 50 MG PO SCH (07:38)
[2016-04-30] MEDS: metFORMIN* 500 MG TAB PO SCH ×2 (07:38→20:37)
[2016-04-30] MEDS: glipiZIDE TAB.XL* 5 MG PO SCH (07:38)
[2016-04-30] MEDS: amLODIPine TAB* 5 MG PO SCH (07:38)
[2016-04-30] MEDS: Hydrochlorothiazide TAB* 25 MG PO SCH (07:38)
[2016-04-30] MEDS: Omeprazole CAP* 20 MG PO SCH ×2 (07:38→20:37)
[2016-04-30] MEDS: Metoprolol Tartrate TAB* 50 mg PO SCH ×2 (07:38→20:37)
--- NOTE | 2016-04-30 10:55 | PN ---
Subjective Date of Service: 04/30/16 Interval History: Pt feels "achy all over". No new complaints. Mentation at baseline Objective Active Medications: Acetaminophen (Tylenol Tab*) 650 mg PO Q4H PRN PRN Reason: FEVER/PAIN Last Admin: 04/29/16 18:28 Dose: 650 mg Al Hydrox/Mg Hydrox/Simethicone (Maalox Plus*) 30 ml PO Q6H PRN PRN Reason: INDIGESTION Amlodipine Besylate (Norvasc Tab*) [address] [facility] Last Admin: 04/30/16 07:38 Dose: 10 mg Dextrose (D50w Syringe 50 Ml*) 12.5 gm IV PUSH .FOR FS < 60 - SS PRN PRN Reason: FS < 60 Docusate Sodium (Colace Cap*) 100 mg PO BID PRN PRN Reason: CONSTIPATION Duloxetine HCl (Cymbalta Cap*) [address] [facility] Last Admin: 04/29/16 20:05 Dose: 60 mg Gabapentin (Neurontin Cap(*)) [address] [facility] Last Admin: 04/29/16 20:06 Dose: 300 mg Glipizide (Glucotrol Xl*) 10 mg PO DAILY WITH MEAL [facility] Last Admin: 04/30/16 07:38 Dose: 10 mg Heparin Sodium (Porcine) (Heparin Vial(*)) 5,[address] [facility] Last Admin: 04/30/16 05:27 Dose: 5,000 units Hydrochlorothiazide (Hydrodiuril Tab*) [address] [facility] Last Admin: 04/30/16 07:38 Dose: 25 mg Insulin Glargine (Lantus(*)) [address] [facility] Last Admin: 04/29/16 20:06 Dose: 20 unit Insulin Human Lispro (Humalog*) 0 units SUBCUT 0730,1130,1630 [facility] PRN Reason: Protocol Last Admin: 04/30/16 07:26 Dose: Not Given Melatonin (Melatonin (Nf)) [address] [facility] Last Admin: 04/29/16 20:05 Dose: 3 mg Metformin HCl (Glucophage*) 1,[address] [facility] Last Admin: 04/30/16 07:38 Dose: 1,000 mg Metoprolol Tartrate (Lopressor Tab*) [address] [facility] Last Admin: 04/30/16 07:38 Dose: 50 mg Omeprazole (Prilosec Cap*) [address] [facility] Last Admin: 04/30/16 07:38 Dose: 20 mg Ondansetron HCl (Zofran Inj*) 4 mg IV Q4H PRN PRN Reason: NAUSEA/VOMITING Prednisone (Deltasone Tab*) [address] [facility] Last Admin: 04/30/16 07:38 Dose: 50 mg Senna (Senokot Tab*) 1 tab PO BID PRN PRN Reason: CONSTIPATION Tramadol HCl (Ultram*) 50 mg PO Q6H PRN PRN Reason: PAIN Last Admin: 04/29/16 14:47 Dose: 50 mg Vital Signs 04/29/16 04/29/16 04/29/16 14:47 15:52 16:47 Temperature 98.1 F Pulse Rate 88 Respiratory 18 16 18 Rate Blood Pressure 145/71 (mmHg) O2 Sat by Pulse 95 Oximetry 04/29/16 04/29/16 04/29/16 20:00 20:06 22:06 Temperature Pulse Rate Respiratory 16 18 16 Rate Blood Pressure (mmHg) O2 Sat by Pulse Oximetry 04/29/16 04/30/16 04/30/16 23:26 00:00 07:48 Temperature 97.9 F 97.4 F Pulse Rate 64 93 Respiratory 16 16 Rate Blood Pressure 140/75 145/84 (mmHg) O2 Sat by Pulse 97 97 97 Oximetry 04/30/16 08:21 Temperature Pulse Rate Respiratory 18 Rate Blood Pressure (mmHg) O2 Sat by Pulse Oximetry Oxygen Devices in Use Now: None Appearance: 76 yo M in NAD, AAOx1 Eyes: No Scleral Icterus, PERRLA Ears/Nose/Mouth/Throat: NL Teeth, Lips, Gums, Mucous Membranes Moist Neck: NL Appearance and Movements; NL JVP, Trachea Midline Respiratory: Symmetrical Chest Expansion and Respiratory Effort, Clear to Auscultation Cardiovascular: NL Sounds; No Murmurs; No JVD, RRR Abdominal: NL Sounds; No Tenderness; No Distention, No Hepatosplenomegaly Lymphatic: No Cervical Adenopathy Extremities: No Edema, No Clubbing, Cyanosis Skin: No Rash or Ulcers, No Nodules or Sclerosis Neurological: NL Muscle Strength and Tone Result Diagrams: 04/26/16 05:09 04/28/16 05:44 Additional Lab and Data: Lab Results 04/24/16 04/24/16 04/24/16 Range/Units 17:41 17:41 17:41 WBC 11.6 H (3.5-10.8) 10^3/ul RBC 4.76 (4.0-5.4) 10^6/ul Hgb 13.4 L (14.0-18.0) g/dl Hct 41 L (42-52) % MCV 86 (80-94) fL MCH 28 (27-31) pg MCHC 33 (31-36) g/dl RDW 15 (10.5-15) % Plt Count 364 (150-450) 10^3/ul MPV 7 L (7.4-10.4) um3 Neut % (Auto) 69.7 (38-83) % Lymph % (Auto) 18.8 L (25-47) % [place] % (Auto) 7.0 (1-9) % Eos % (Auto) 4.1 (0-6) % Baso % (Auto) 0.4 (0-2) % Absolute Neuts (auto) 8.1 H (1.5-7.7) 10^3/ul Absolute Lymphs (auto) 2.2 (1.0-4.8) 10^3/ul Absolute Monos (auto) 0.8 (0-0.8) 10^3/ul Absolute Eos (auto) 0.5 (0-0.6) 10^3/ul Absolute Basos (auto) 0 (0-0.2) 10^3/ul Absolute Nucleated RBC 0 10^3/ul Nucleated RBC % 0 INR (Anticoag Therapy) 1.14 H (0.89-1.11) APTT 32.6 (26.0-36.3) seconds Sodium 131 L (133-145) mmol/L Potassium 3.8 (3.5-5.0) mmol/L Chloride 92 L (101-111) mmol/L Carbon Dioxide 28 (22-32) mmol/L Anion Gap 11 (2-11) mmol/L BUN 26 H (6-24) mg/dL Creatinine 1.09 (0.67-1.17) mg/dL Est GFR ( Amer) 84.4 (>60) Est GFR (Non-Af Amer) 65.6 (>60) BUN/Creatinine Ratio 23.9 H (8-20) Glucose 182 H (70-100) mg/dL Lactic Acid (0.5-2.0) mmol/L Calcium 10.2 (8.6-10.3) mg/dL Total Bilirubin 0.60 (0.2-1.0) mg/dL AST 19 (13-39) U/L ALT 23 (7-52) U/L Alkaline Phosphatase 55 (34-104) U/L Total Creatine Kinase 25 (10-223) U/L CK-MB (CK-2) 2.2 (0.6-6.3) ng/mL Myoglobin 45.0 (17.4-105.7) ng/mL Troponin I 0.01 (<0.04) ng/mL B-Natriuretic Peptide ( - 100) pg/mL Total Protein 7.5 (6.4-8.9) g/dL Albumin 4.0 (3.2-5.2) g/dL Globulin 3.5 (2-4) g/dL Albumin/Globulin Ratio 1.1 (1-3) Lipase 22 (11.0-82.0) U/L TSH 1.69 (0.34-5.60) mcIU/mL 04/24/16 04/24/16 Range/Units 17:41 17:41 WBC (3.5-10.8) 10^3/ul RBC (4.0-5.4) 10^6/ul Hgb (14.0-18.0) g/dl Hct (42-52) % MCV (80-94) fL MCH (27-31) pg MCHC (31-36) g/dl RDW (10.5-15) % Plt Count (150-450) 10^3/ul MPV (7.4-10.4) um3 Neut % (Auto) (38-83) % Lymph % (Auto) (25-47) % [place] % (Auto) (1-9) % Eos % (Auto) (0-6) % Baso % (Auto) (0-2) % Absolute Neuts (auto) (1.5-7.7) 10^3/ul Absolute Lymphs (auto) (1.0-4.8) 10^3/ul Absolute Monos (auto) (0-0.8) 10^3/ul Absolute Eos (auto) (0-0.6) 10^3/ul Absolute Basos (auto) (0-0.2) 10^3/ul Absolute Nucleated RBC 10^3/ul Nucleated RBC % INR (Anticoag Therapy) (0.89-1.11) APTT (26.0-36.3) seconds Sodium (133-145) mmol/L Potassium (3.5-5.0) mmol/L Chloride (101-111) mmol/L Carbon Dioxide (22-32) mmol/L Anion Gap (2-11) mmol/L BUN (6-24) mg/dL Creatinine (0.67-1.17) mg/dL Est GFR ( Amer) (>60) Est GFR (Non-Af Amer) (>60) BUN/Creatinine Ratio (8-20) Glucose (70-100) mg/dL Lactic Acid 3.4 H* (0.5-2.0) mmol/L Calcium (8.6-10.3) mg/dL Total Bilirubin (0.2-1.0) mg/dL AST (13-39) U/L ALT (7-52) U/L Alkaline Phosphatase (34-104) U/L Total Creatine Kinase (10-223) U/L CK-MB (CK-2) (0.6-6.3) ng/mL Myoglobin (17.4-105.7) ng/mL Troponin I (<0.04) ng/mL B-Natriuretic Peptide 31 ( - 100) pg/mL Total Protein (6.4-8.9) g/dL Albumin (3.2-5.2) g/dL Globulin (2-4) g/dL Albumin/Globulin Ratio (1-3) Lipase (11.0-82.0) U/L TSH (0.34-5.60) mcIU/mL Microbiology and Other Data: Microbiology 04/25/16 05:40 Aerobic Blood Culture - Preliminary Blood Venous No Growth Day 1 Anaerobic Blood Culture - Preliminary No Growth Day 1 Assess/Plan/Problems-Billing Assessment: Mr. Salcedo is a 76 yo male with PMH of dementia, CKD, Diabetes, HTN who had a mechanical fall and sustained a right shoulder dislocation and small intracranial bleed traumatic) in 03/2016, discharged home on 04/16/2016 presents back with more confusion and h/o episodes of agitation. - Patient Problems (1) Dementia Comment: rapidly progressing, in the past 3 months. ESR >90. Neurology saw pt in consult. Dr. George recommended TY -low, RF -low Vit B12 levels >300, RPR nonreactive. HIV test pending. MRA unremarkable . MRI shows abnormal enhancement in periventricular white matter. LP had 15.5 opening pressure. 18 ml were obtained. Protein >200, glucose 74, WBC 1. D/w ID and Dr. George. studies and cultures are still pending. Protein 14-3-13 from CSF to evel for Creutzfeldt Zhang was ordered from CSF. PT eval after large volume LP was difficult to eval due to pt not cooperating, mentation was unchanged. ambulates well with assist. as per phone conversation with Dr. George on 04/27/16 : anti Hu antb ordered to r /o paraneoplastic syndrome. Dr George also recommended starting pt on Prednisone -started on 04/28/16, so far no improvement noted. as per d/w Dr. Winn, cont Prednisone 50 mg PO daily x 5 days total and d/c if no improvement noted (no taper needed) (2) Diabetes Comment: cont metformin and ISS as well as Lantus and glipizide. monitor sugars in light of steroid tx. (3) Hypertension Comment: controlled Continue amlodipine,HCTZ. 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 Status and Disposition: inpatient, medically ready for STR
[2016-04-30] MEDS: Acetaminophen TAB* 325 MG PO PRN (18:16)
[2016-04-30] MEDS: Insulin GLARGINE(*) 1 UNITS UNIT SUBCUT SCH (20:34)
[2016-04-30] MEDS: DULoxetine DR CAP* 60 MG CAP.DR PO SCH (20:35)
[2016-04-30] MEDS: traMADol TAB* 50 MG PO PRN (20:36)
[2016-04-30] MEDS: Gabapentin CAP(*) 300 MG PO SCH (20:36)
[2016-04-30] MEDS: CMCS Melatonin (NF) 3 MG TAB PO SCH (20:43)
--- NOTE | 2016-04-30 23:10 | DS ---
DISCHARGE SUMMARY: DATE OF ADMISSION: 04/24/16 DATE OF ANTICIPATED DISCHARGE: 05/01/16 PRIMARY CARE PROVIDER: Ela Ly MD DISCHARGE DIAGNOSES: 1. Rapidly progressive dementia. 2. 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 SECONDARY DIAGNOSES: 1. History of dementia for 3 months. 2. History of diabetes, on insulin. 3. Hypertension. 4. Hyperlipidemia. 5. History of status post prostatectomy for prostate cancer. 6. History of diverticulosis. 7. Gastroesophageal reflux disease. 8. History of chronic abdominal pain. 9. History of recent admission for right shoulder dislocation, status post reduction in March 2016. 10. History of recent small right lateral ventricle intracranial hemorrhage that was posttraumatic. The patient was discharged from hospitalization for it on 04/10/16. CONSULT DURING THE HOSPITAL STAY: Dr. Olivas from Anesthesiology; Dr. George and Dr. Winn from Neurology. PROCEDURES DURING THE HOSPITAL STAY: Included lumbar puncture performed by Dr. Olivas on 04/27/16. LABORATORY DATA AND STUDIES PERFORMED DURING THE HOSPITAL STAY: On 04/26/16, white blood cell count of 9.9, hemoglobin of 12.4, hematocrit of 37, and platelets 272. The patient's ESR was documented at 91. Sodium 140, potassium 3.3, chloride 101, carbon dioxide 29, BUN 15, and creatinine 0.6. That was documented on 04/28/16. Vitamin B12 was noted to be 345 on 04/26/16. TSH was 1.69 on . Urinalysis showed +2 blood and +3 rbc's on microscopic evaluation that was noted on 04/24/16. Lumbar puncture and cervical spine fluid result showed colorless fluid with 1 white blood cell and 316 red blood cells. CSF glucose level was 74, CSF total protein was 255. CSF VDRL was negative. CSF cryptococcal antigen was negative. Rheumatoid factor was below 15 and TY level was 0.4. Syphilis IgG antibody was nonreactive and HIV test was also nonreactive. Head MRA obtained on 04/27/16. Impression: "No aneurysm, vascular malformation or occlusion. No stenosis of the visualized intracranial circulation. MR angiography is relatively insensitive to small vessel vasculitis. The is actually exacerbated by the patient's motion artifact. " MRI of the brain obtained on 04/27/16. Impression: "There is extensive abnormal signal in the periventricular and subcortical white matter and to a lesser extent in the pontine white matter. This progressed from the December 2008 evaluation. The imaging appeared nonspecific, though the differential does include chronic small vessel ischemia as well as small vessel vasculitis. There is no associated abnormal enhancement to suggest acute and active inflammation. Toxic metabolic encephalopathies including mitochondrial disorders are also within the differential. Advanced demyelinating disease is also within the differential, but is considered less likely in the absence of the appropriate clinical presentation." Abdomen and pelvis CT obtained on 04/24/16. Impression: "No acute abnormality of the abdomen and pelvis. Diverticulosis without acute inflammatory change. Very slowly growing cystic lesion in the tail of the pancreas most consistent with mucinous neoplasm noted at 11 mm. Additional chronic degenerative and iatrogenic findings as described in the body of the report." Abdomen ultrasound obtained on 04/24/16. Impression: "No acute abnormality of the right upper quadrant." CT of the brain. Impression: "Stable degenerative changes as described above without CT evidence of acute intracranial abnormality." HOSPITALIZATION COURSE: Anthony Salcedo is a 76-year-old male who had been hospitalized frequently in the past 3 months. In February 2016, he was admitted to our facility for DKA, rhabdomyolysis, and influenza B. He was also noted to have acute delirium on top of dementia. In March 2016, he was readmitted after a fall. He dislocated his left shoulder also. That had to be reduced under general anesthesia in the OR by Dr. Meza on 04/10/16. The patient also was noted to have small intracranial hemorrhage post traumatic. He also continues to have progressive dementia. At that point, the patient's decided to take him home on 04/16/16. She brought him back to the hospital on 04/24/16, noted that the patient was aggressive and his mentation was worsening on a daily basis. The patient was at this point readmitted. We asked Dr. George from Neurology to see the patient in consultation. At this point, it was noted that the patient's progressive dementia had been ongoing for [address] George recommended a lumbar puncture, MRI and MRA of the brain. All of those studies were performed as above mentioned. The MRI did find extensive periventricular white matter disease but that was nonspecific finding. It was also noted that the patient had an elevation of protein above 250 on his cerebrospinal fluid analysis, but all the other test including VDRL, HIV and autoimmune studies were negative. At this point, specific protein for Creutzfeldt-Zhang disease which is protein 14/3/3, is still pending at the time of dictation as well as anti-BRADEN antibody and prior neoplastic antibody. Nevertheless, after the patient's lumbar puncture was performed due to his high ESRs above 90, it was decided to empirically start him to prednisone. The patient received the first dose of prednisone on 04/28/16. Currently , he is after his third dose of prednisone and no significant change in mentation was noted. The patient still has significant dementia and is disoriented. He is able to follow 2-step commands and he is oriented to self only. He is able to ambulate mostly without assistance. He usually complains of pain all over. He speaks fluently both [place] and [place]. At this point, the patient's did not feel comfortable with taking the patient home due to history of the patient being aggressive to her at home. Due to that, short-term rehabilitation placement was requested and the patient was accepted to [facility] with a planned transfer on 05/01/16. At the time of discharge, the patient is recommended to follow up with Dr. George in approximately a couple of weeks. If there is no change or improvement in patient's mentation, the prednisone is to be stopped after a total of 4 more doses as recommended by Dr. Winn from Neurology. MEDICATION LIST AT DISCHARGE: 1. Acetaminophen 650 mg t.i.d. p.r.n. 2. Cymbalta 60 mg daily and 30 mg at bedtime. 3. Colace 100 mg b.i.d. 4. Gabapentin 300 mg at bedtime. 5. Hydrochlorothiazide 25 mg daily. 6. Insulin glargine 20 units daily. 7. Insulin lispro sliding scale. 8. Metoprolol succinate 50 mg b.i.d. 9. Omeprazole 40 mg daily. 10. Senna 1 tablet b.i.d. p.r.n. 11. Norvasc 10 mg daily. 12. Glucotrol XL 10 mg daily. 13. Metformin 1000 mg b.i.d. 14. Prednisone 50 mg tablet, stop after 4 doses if no improvement in mentation. 15. Ultram 50 mg every 6 hours p.r.n. STUDIES PENDING AT THE TIME OF THE DISCHARGE: Include paraneoplastic autoantibody panel as well as anti-BRADEN antibody and remaining CSF cultures that at the time of discharge were negative to date. PHYSICAL EXAM AT THE TIME OF DISCHARGE: Please see daily progress notes, but shows the patient's physical exam is unremarkable. His mentation shows orientation x1. He is able to follow simple commands. He ambulates independently or with one-person assist. Please note that this is a short summary of the patient's hospital stay. Please refer to further medical records for details. TIME SPENT: Approximately 50 minutes was spent on the patient's discharge. CC: Dr. Ela Ly; Dr. George; Dr. Winn; [facility] * [id number]/[facility] #: [id number] MTDD
[2016-05-01 05:26] VITALS: BP 137/72
[2016-05-01] MEDS: Heparin VIAL(*) 5000 UNITS/ML VIAL (FIVE THOUSAND) SUBCUT SCH (06:44)
[2016-05-01] MEDS: Insulin LISPRO* 1 UNITS UNIT SUBCUT SCH (07:22)
[2016-05-01] MEDS: predniSONE TAB* 50 MG PO SCH (09:04)
[2016-05-01] MEDS: amLODIPine TAB* 5 MG PO SCH (09:04)
[2016-05-01] MEDS: Metoprolol Tartrate TAB* 50 mg PO SCH (09:04)
[2016-05-01] MEDS: glipiZIDE TAB.XL* 5 MG PO SCH (09:04)
[2016-05-01] MEDS: metFORMIN* 500 MG TAB PO SCH (09:04)
[2016-05-01] MEDS: Omeprazole CAP* 20 MG PO SCH (09:04)
[2016-05-01] MEDS: Hydrochlorothiazide TAB* 25 MG PO SCH (09:04)
[2016-05-03 22:21] LABS: Anti-Glial/Neuronal Nuc Ab-1 A Negative titer (<1:240); Anti-Neuronal Nuclear Ab Type1 Negative titer (<1:240); Anti-Neuronal Nuclear Ab Type2 Negative titer (<1:240); Anti-Neuronal Nuclear Ab Type3 Negative titer (<1:240); CRMP-5 IgG Antibody Negative titer (<1:240); Calcium Channel Binding Ab P/Q 0.01 nmol/L (<=0.02); Purkinje Cell Cytoplasm Typ Tr Negative titer (<1:240); Purkinje Cell Cytoplasm Type 1 Negative titer (<1:240); Purkinje Cell Cytoplasm Type 2 Negative titer (<1:240)
== END 2016-05-01 10:10 | DRG 884 ==
LOC: ED 16:53 → MED 22:13
PROVIDERS: ADMIT Pediatrics; ATTEND Internal Medicine
PROC: 4A10X4Z Monitoring of Central Nervous Electrical Activity, External Approach (ICD-10-PCS; 2016-04-26)
PROC: 009U3ZX Drainage of Spinal Canal, Percutaneous Approach, Diagnostic (ICD-10-PCS; principal; 2016-05-01)
PROC: B030ZZZ Magnetic Resonance Imaging (MRI) of Brain (ICD-10-PCS; 2016-05-01)
DX: F03.91 Unspecified dementia, unspecified severity, with behavioral disturbance (principal); E11.22 Type 2 diabetes mellitus with diabetic chronic kidney disease; Z88.8 Allergy status to other drugs, medicaments and biological substances; E78.00 Pure hypercholesterolemia, unspecified; K21.9 Gastro-esophageal reflux disease without esophagitis; N40.0 Benign prostatic hyperplasia without lower urinary tract symptoms; Z87.442 Personal history of urinary calculi; Z96.653 Presence of artificial knee joint, bilateral; F41.0 Panic disorder [episodic paroxysmal anxiety]; Z86.73 Personal history of transient ischemic attack (TIA), and cerebral infarction without residual deficits; Z83.3 Family history of diabetes mellitus; Z82.49 Family history of ischemic heart disease and other diseases of the circulatory system; R32 Unspecified urinary incontinence; G89.29 Other chronic pain; R10.9 Unspecified abdominal pain; Z66 Do not resuscitate; I12.9 Hypertensive chronic kidney disease with stage 1 through stage 4 chronic kidney disease, or unspecified chronic kidney disease; N18.9 Chronic kidney disease, unspecified; D01.7 Carcinoma in situ of other specified digestive organs; Z88.0 Allergy status to penicillin; Z79.4 Long term (current) use of insulin
CPT/HCPCS: 36415; 70450; 70544; 70553; 71010; 74177; 76705; 80048; 80053; 81003; 81015; 82550; 82553; 82607; 82945; 83519; 83520; 83605; 83690; 83874; 83880; 84157; 84443; 84484; 85025; 85610; 85652; 85730; 86038; 86255; 86256; 86341; 86431; 86592; 86703; 87040; 87070; 87205; 87899; 88112; 89051; 93005; 95819; 99283; A9270-GY; A9579; J0330; J1644; J2250; J2405; J3010; J7512; Q9967

== ENCOUNTER 2017-04-20 13:51 | Day surgery (SDC) | payer MEDICARE, MEDICAID ==
[2017-04-20] MEDS ORDERED: Ondansetron INJ* 2 MG/ML VIAL IV ONE (14:20)
[2017-04-20] MEDS ORDERED: Morphine INJ* 4 MG/ML 1 ML CARPUJECT IV ONE (14:20)
[2017-04-20 15:00] LABS: ABS Basophils 0.1 10^3/ul (0-0.2); ABS Eosinophils 0.2 10^3/ul (0-0.6); ABS Lymphocytes 2.3 10^3/ul (1.0-4.8); ABS Monocytes 0.8 10^3/ul (0-0.8); ABS Neutrophils 7.3 10^3/ul (1.5-7.7); ABS Nucleated RBC 0.01 10^3/ul; Eosinophil % 2.3 % (0-6); Hematocrit 38 % (42-52); Hemoglobin 12.8 g/dl (14.0-18.0); Lymphocyte % 21.5 % (25-47); Mean Corpuscular HGB Conc 33 g/dl (31-36); Mean Corpuscular Hemoglobin 28 pg (27-31); Mean Corpuscular Volume 84 fL (80-94); Mean Platelet Volume 7 um3 (7.4-10.4); Nucleated Red Blood Cells % 0; Platelet Count 220 10^3/ul (150-450); Red Blood Count 4.58 10^6/ul (4.0-5.4); Red Cell Distribution Width 15 % (10.5-15); White Blood Count 10.7 10^3/ul (3.5-10.8)
--- NOTE | 2017-04-20 15:14 | ED ---
Upper Extremity Pain - HPI Summary HPI Summary: Pt here w/ Lt shoulder/arm pain since falling earlier today. Mechanical trip and landed with arms outstretched. Lt shoulder is swollen and painful to move. Denies numbness, tingling, weakness in extremity. nO Other injuries to report. Reports h/o dislocation in Rt shoulder last year. Has had trouble with this since - follows w/ Dr. Meza - has had multiple injections w/o relief - son thinks something is torn in here but has not had surgery. Last ate at 12pm today. Insulin dependent diabetes - will check blood glucose now. Other medical conditions: HTN wears denture no known bleeding d/o however admits he takes other medications which he took this morning - does not know names of meds - History of Current Complaint Chief Complaint: EDExtremityUpper Stated Complaint: FALL-LEFT SHOULDER PAIN Time Seen by Provider: 04/20/17 14:11 Hx Obtained From: Patient, Family/Language Therapist - son - Allergies/Home Medications Allergies/Adverse Reactions: Allergies Allergy/AdvReac Type Severity Reaction Status Date / Time Budesonide Allergy Intermediate Difficulty Verified 04/12/17 15:24 Breathing Meperidine [From Demerol HCl] Allergy Intermediate Difficulty Verified 04/12/17 15:24 Breathing Clarithromycin [From Biaxin] Allergy Unknown Verified 04/12/17 15:24 Reaction Details Lisinopril Allergy Coughing Verified 04/12/17 15:24 Losartan Allergy Coughing Verified 04/12/17 15:24 Penicillins Allergy Unknown Verified 04/12/17 15:24 Reaction Details PMH/Surg Hx/FS Hx/Imm Hx Endocrine/Hematology History: Reports: Hx Diabetes - insulin dependent Denies: Hx Systemic Lupus Erythematosus Cardiovascular History: Reports: Hx Hypercholesterolemia, Hx Hypertension, Other Cardiovascular Problems/Disorders - TYPE ii DIABETIC Denies: Hx Congestive Heart Failure, Hx Pacemaker/ICD Respiratory History: Reports: Other Respiratory Problems/Disorders - HX OF PNEUMONIA GI History: Reports: Hx Diverticulosis, Hx Gastroesophageal Reflux Disease, Other GI Disorders - polyps History: Reports: Hx Benign Prostatic Hyperplasia, Hx Kidney Stones, Other Problems/Disorders - kidney stones, prostate surgery Denies: Hx Dialysis, Hx Renal Disease Musculoskeletal History: Reports: Other Musculoskeletal History - bilat knee replacements Denies: Hx Rheumatoid Arthritis, Hx Osteoporosis Sensory History: Reports: Hx Contacts or Glasses, Hx Hearing Problem Denies: Hx Hearing Aid Opthamlomology History: Reports: Hx Contacts or Glasses Neurological History: Reports: Hx Dementia, Other Neuro Impairments/Disorders - possible CVA hx Psychiatric History: Reports: Hx Panic Disorder - AGITATED ABOUT BEING IN HOSPITAL - Cancer History Cancer Type, Location and Year: prostate ca "10 years ago" Hx Chemotherapy: No - Surgical History Surgery Procedure, Year, and Place: part of intestines removed, prostatectomy, bilat knee replacement,r hand surgery, Infectious Disease History: No Infectious Disease History: Denies: Traveled Outside the [place] in Last 30 Days - Family History Known Family History: Positive: Hypertension, Diabetes, Other - headache - Social History Occupation: Retired Lives: At [facility] Alcohol Use: Rare Hx Substance Use: No Substance Use Type: Reports: None Hx Tobacco Use: No Smoking Status (MU): Never Smoked Tobacco Review of Systems Negative: Photophobia, Blurred Vision, Diplopia Negative: Chest Pain Negative: Shortness Of Breath Negative: Abdominal Pain, Vomiting, Nausea Positive: no symptoms reported Positive: Arthralgia, Decreased ROM, Edema Skin: Negative Neurological: Negative Psychological: Normal All Other Systems Reviewed And Are Negative: Yes Physical Exam Triage Information Reviewed: Yes Vital Signs On Initial Exam: Initial Vitals Temp Pulse Resp BP Pulse Ox 98.6 F 88 20 184/89 95 04/20/17 13:53 04/20/17 13:53 04/20/17 13:53 04/20/17 13:53 04/20/17 13:53 Vital Signs Reviewed: Yes Appearance: Positive: Well-Appearing, Pain Distress - mild to moderate, Obese Skin: Positive: Warm, Dry - no erythema, no ecchymosis over affected area Head/Face: Positive: Normal Head/Face Inspection - NTTP, no signs of trauma Eyes: Positive: Normal, EOMI, KLEBER - no photophobia, Conjunctiva Clear ENT: Positive: Hearing grossly normal, TMs normal - no hemotympanum, Other - oral mucosa dry - Mallampati score III. Negative: Nasal congestion, Nasal drainage Dental: Positive: Other - wearing dentures Respiratory/Lung Sounds: Positive: Breath Sounds Present. 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0) g/dl Hct 38 L (42-52) % MCV 84 (80-94) fL MCH 28 (27-31) pg MCHC 33 (31-36) g/dl RDW 15 (10.5-15) % Plt Count 220 (150-450) 10^3/ul MPV 7 L (7.4-10.4) um3 Neut % (Auto) 68.4 (38-83) % Lymph % (Auto) 21.5 L (25-47) % [place] % (Auto) 7.2 (1-9) % Eos % (Auto) 2.3 (0-6) % Baso % (Auto) 0.6 (0-2) % Absolute Neuts (auto) 7.3 (1.5-7.7) 10^3/ul Absolute Lymphs (auto) 2.3 (1.0-4.8) 10^3/ul Absolute Monos (auto) 0.8 (0-0.8) 10^3/ul Absolute Eos (auto) 0.2 (0-0.6) 10^3/ul Absolute Basos (auto) 0.1 (0-0.2) 10^3/ul Absolute Nucleated RBC 0.01 10^3/ul Nucleated RBC % 0 Result Diagrams: 04/20/17 14:44 04/20/17 14:44 Diagnostic Studies Comment: Lt shoulder, clavicle and humerus XR's reviewed - agree w/ report Lab Statement: Any lab studies that have been ordered have been reviewed, and results considered in the medical decision making process. Re-Evaluation - Re-Evaluation First Eval Change: Improved - morphine took the edge off but still has a lot of pain Course/Dx - Course Course Of Treatment: Pt here w/ Lt shoulder dislocation s/p mechanical fall w/o other injuries. Concerned about reducing in ED w/ inadequate pain control along w/ pt's health status - has dry oral mucosa; chronic neuropathy pain for which he takes gabapentin and lyrica daily; HTN; Mallampati score of III-IV. He admits last time he needed his Rt shoulder reduced for dislocation, he had to go to the OR. Also reports in the past while under anesthesia, he stopped breathing. Spoke w/ Dr. Cash who agrees pt requires sedation for procedure via anesthesia and ortho. Dr. Cash called anesthesia and I spoke w/ Dr. Salvador. Dr. Salvador confirms they will take pt to OR in 1 hour - NPO and no narcotic pain meds in the meantime if possible. - Diagnoses Provider Diagnoses: Dislocation of left shoulder joint Discharge - Discharge Plan Disposition: ADMITTED TO [facility]
[2017-04-20 15:17] LABS: EGFR Non-African American 60.9 (>60)
--- NOTE | 2017-04-20 15:46 | RAD ---
INDICATION: Trauma. COMPARISON: None. TECHNIQUE: 4 views of the left shoulder, 2 views left clavicle and 3 views of the left humerus were obtained. FINDINGS: The left humerus is dislocated inferior and anterior relative to the bony glenoid labrum. There are degenerative changes at the acromioclavicular joint that includes marginal osteophyte formation. The left clavicle appears to be intact. There is no fracture visible at the left humerus. IMPRESSION: RADIOGRAPHIC FINDINGS ARE MOST CONSISTENT WITH A DISLOCATED LEFT SHOULDER.
[2017-04-20] MEDS ORDERED: Propofol* 10 MG/ML 20 ML BTL IV PUSH ONE (17:15)
[2017-04-20] MEDS ORDERED: Lidocaine 2% PF * 5 ML VIAL ONE (17:15)
[2017-04-20] MEDS ORDERED: Ondansetron INJ* 2 MG/ML VIAL IV PRN (17:55)
[2017-04-20] MEDS ORDERED: fentaNYL* 50 MCG/ML 2 ML VIAL (100 MCG VIAL) IV PRN (17:55)
[2017-04-20] MEDS ORDERED: fentaNYL* 50 MCG/ML 2 ML VIAL (100 MCG VIAL) ONE (18:16)
--- NOTE | 2017-04-20 18:21 | RAD ---
Amended report to correct patient account number. INDICATION: Postreduction film COMPARISON: Same day radiograph of the shoulder acquired at 1455 hours TECHNIQUE: 2 views of the left shoulder were obtained. FINDINGS: There is been interval relocation of the humeral head relative to the bony glenoid labrum. The acromioclavicular joint measures just under 9 mm in width increased from 6 mm on the previous radiograph. No acute bony fracture is seen. IMPRESSION: 1. INTERVAL REDUCTION OF THE DISLOCATED LEFT SHOULDER. 2. PATHOLOGIC WIDENING OF THE LEFT ACROMIOCLAVICULAR JOINT COULD BE SEEN IN THE SETTING OF A GRADE 1 AC SEPARATION INJURY. MTDD
[2017-04-20 19:39] VITALS: BP 152/85
--- NOTE | 2017-04-20 23:03 | OP ---
OPERATIVE REPORT: DATE OF OPERATION: 04/20/17 DATE OF : 38 SURGEON: Geoffrey Salvador MD BALE SEWER: None. ANESTHESIOLOGIST: Dr. Quick. ANESTHESIA: MAC. PRE-OP DIAGNOSIS: Left glenohumeral anterior dislocation. POST-OP DIAGNOSIS: Left glenohumeral anterior dislocation. PROCEDURE PERFORMED: Closed reduction left glenohumeral dislocation. INDICATION: Anthony had a fall earlier today. He dislocated the shoulder. He dislocated the right shoulder previously about a year ago. He has been following with Dr. Meza for that. He still has a quite a bit of chronic pain and disability related to that. He is a pretty significant type 2 arnaldo betic. ESTIMATED BLOOD LOSS: None. COMPLICATIONS: None. FINDINGS: As expected. DESCRIPTION OF PROCEDURE: Anthony was seen in preoperative holding area. The correct side, site and procedure were identified. I came back to the operating room. Anesthesia was induced. We had a ti me-out. I then took the arm and with traction together with some gentle internal and external rotati on, the shoulder was set back into joint. Plain films including AP and axillary lateral view confirm ed the reduction. He was then placed in a sling, woken up and taken to the recovery room in stable c ondition. [id number]/[facility] #: [id number]
== END 2017-04-20 16:42 | disposition home or self-care (01) ==
LOC: ED 13:51 → OR 16:42
PROVIDERS: ATTEND Orthopaedic Surgery Hand Surgery
DX: S43.015A Anterior dislocation of left humerus, initial encounter (principal); E11.9 Type 2 diabetes mellitus without complications; Z79.4 Long term (current) use of insulin; Z79.84 Long term (current) use of oral hypoglycemic drugs; I10 Essential (primary) hypertension; G62.9 Polyneuropathy, unspecified; I67.2 Cerebral atherosclerosis; F01.50 Vascular dementia, unspecified severity, without behavioral disturbance, psychotic disturbance, mood disturbance, and anxiety; W01.0XXA Fall on same level from slipping, tripping and stumbling without subsequent striking against object, initial encounter; Y92.9 Unspecified place or not applicable
CPT/HCPCS: 36415; 80048; 85025; 96374; 96375; 99284; J2270; J2405; J2704; J3010

== ENCOUNTER 2017-04-24 13:24 | Day surgery (SDC) | payer MEDICARE, MEDICAID ==
--- NOTE | 2017-04-12 19:32 | HP ---
CC: Dr. Koch; Dr. Schultz, [facility] * PREOPERATIVE HISTORY AND PHYSICAL: DATE OF ADMISSION: This patient is scheduled for same-day surgery admission by Dr. Koch, 04/24/17. DATE OF PREOPERATIVE HISTORY AND PHYSICAL EXAMINATION: 04/12/17. ATTENDING SURGEON: Dr. Clark Koch * (dictated by Irma Capone NP) CHIEF COMPLAINT: Multiple painful skin lesions on back. HISTORY OF PRESENT ILLNESS: Mr. Salcedo is a 77-year-old male, who is a resident at [facility], he was recently evaluated by Dr. Koch for new lesions on his back that are pruritic and painful. 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 Koch in January 2017. The patient currently denies any left ear pain and that site is well-healed. Currently, he is complaining of 4 discrete lesions on his back; he describes them as being significantly pruritic especially over the last 2 years. He denies any drainage from the sites. These have never been biopsied. Dr. Koch examined the patient and notes 3 discrete 1- to 2-cm raised pigmented skin lesions on his back and an additional lesion on the right flank that measures 3 cm x 8.5 cm. This lesion is hyperpigmented and raised with mild excoriation and is minimally tender. Dr. Koch has recommended excision of the back lesions with advancement flap of the right flank skin lesion as a same- day surgery procedure. Dr. Koch discussed the nature of the surgical procedure , the relevant risks and benefits, and today I reviewed the typical postoperative care and recovery. The patient has had a chance to ask questions and stated that he understands the information and is satisfied with the answers given to his questions. He will sign surgical consent on the day of surgery. PAST MEDICAL HISTORY: Significant for squamous cell carcinoma, left ear; vascular dementia; hypertension; type 2 diabetes; hyperlipidemia; former smoker ; tubular adenomas of the cecum, status post laparoscopic ileocolectomy in 2011. PAST SURGICAL HISTORY: Right shoulder closed relocation, March 2016; laparoscopic ileocolectomy, June 2011. MEDICATIONS: 1. Acetaminophen 650 mg q.4 hours p.r.n. pain or fever. 2. Amlodipine 10 mg p.o. daily. 3. Artificial tears solution 1.4% 2 drops in both eyes 3 times a day as needed for dry eyes. 4. Gabapentin 500 mg p.o. b.i.d. 5. Humalog insulin/lispro 100 units/mL 4 units subcutaneously with meals. 6. Hydrocodone/acetaminophen 5/325 mg 1 tablet every 6 hours as needed for neuropathic pain. 7. Insulin glargine 30 units subcutaneously at bedtime for diabetes. 8. Lasix 20 mg 3 tablets p.o. daily. 9. Lyrica 25 mg p.o. t.i.d. 10. Melatonin 3 mg p.o. at bedtime. 11. Metformin 1000 mg p.o. b.i.d. 12. Naproxen 1 tablet p.o. every 12 hours p.r.n. shoulder pain. 13. Omeprazole 20 mg p.o. daily. 14. Potassium chloride ER 20 mEq p.o. daily. 15. Toprol-XL extended release 100 mg p.o. daily. ALLERGIES: PENICILLIN caused rash; BIAXIN caused unspecified reaction; LISINOPRIL caused cough; LOSARTAN may have caused anaphylaxis; PRAVASTATIN, stomach pain. FAMILY HISTORY: No known anesthesia complications, bleeding tendencies, or clotting disorders. SOCIAL HISTORY: He is currently a resident at [facility]; he is a former smoker and quit over 30 years ago. He rarely drinks alcohol. He is a retired white. REVIEW OF SYSTEMS: Constitutional: He denies fevers or chills, excessive fatigue or weight loss. Endocrine: Type 2 diabetes. Hematologic: No easy bruising or bleeding. Respiratory: No dyspnea on exertion. No chronic cough. Cardiovascular: No anginal chest pain or palpitations. Gastrointestinal: Good appetite. No nausea, vomiting, diarrhea, or constipation. Genitourinary: No dysuria. Musculoskeletal: Neuropathic pain in the feet, he uses a cane for stability. Skin: As described in history of present illness. Neurologic: Steady gait, cooperative. PHYSICAL EXAMINATION GENERAL SURVEY: The patient is a 77-year-old male, well-developed, well- nourished, in no acute distress. VITAL SIGNS: Height 63 inches, weight 206 pounds, body mass index 36. Blood pressure 144/78, pulse 66 and regular, respiratory rate 18, temperature 99.2 tympanic. HEENT: Benign. NECK: Supple. No cervical lymphadenopathy. BACK: No CVA tenderness. LUNGS: Breath sounds bilaterally clear and equal. HEART: Regular rate and rhythm. No murmurs or rubs appreciated. ABDOMEN: Obese, soft, nondistended, nontender throughout. GENITALIA: Exam is deferred. RECTAL: Exam is deferred. EXTREMITIES: Moves all 4 extremities, walks with a cane, gait is steady. NEUROLOGIC: Alert and oriented x3. SKIN: Pigmented lesions on his back and right flank, most of them measuring 2 cm x 1 cm with the largest being on the right flank, hyperpigmented, measuring 8.5 x 2.5 cm. No erythema or drainage noted. Mildly tender. IMPRESSION: Four pigmented back lesions that are pruritic and painful. PLAN: Same-day surgery admission to Dr. Koch's service on 04/24/17 , for excision of 4 back lesions with advancement flap of the right flank skin lesion. DASHA CAPONE, CARLOS [id number]/[facility] #: [id number] [facility]
[~2017-04-24 13:24] MED LIST: Buffered Lidocaine 0.9% SYRIN* 5 ML/SYR SYRINGE INTRADERM ONE
[2017-04-24] MEDS ORDERED: Buffered Lidocaine 0.9% SYRIN* 5 ML/SYR SYRINGE ONE (13:33)
[2017-04-24] MEDS ORDERED: Clindamycin 900 MG IVPREMIX(* 900 MG/50 ML SDV IV ONE (13:33)
[2017-04-24] MEDS ORDERED: Morphine INJ* 4 MG/ML 1 ML CARPUJECT ONE (16:29)
[2017-04-24] MEDS ORDERED: Lidocaine 1% MPF wEPI 200,000* 30 ML SDV ONE (18:00)
[2017-04-24] MEDS ORDERED: Bupivacaine 0.5% SDV PF* 10-30ML VIAL ONE (18:00)
[2017-04-24] MEDS ORDERED: Midazolam* 1 MG/ML 2 ML VIAL (2 MG) ONE ×2 (18:23→18:48)
[2017-04-24] MEDS ORDERED: Bacitracin OINTMENT* 0.5% 0.5 oz TUBE ONE (18:38)
[2017-04-24] MEDS ORDERED: fentaNYL* 50 MCG/ML 2 ML VIAL (100 MCG VIAL) ONE (18:52)
[2017-04-24] MEDS ORDERED: Bupivacaine 0.25% SDV* 30 ML ONE (18:55)
[2017-04-24] MEDS ORDERED: fentaNYL* 50 MCG/ML 2 ML VIAL (100 MCG VIAL) IV PRN (18:59)
[2017-04-24] MEDS ORDERED: Naloxone* 0.4 MG/ML 1 ML VIAL IV PRN (18:59)
[2017-04-24] MEDS ORDERED: Ondansetron INJ* 2 MG/ML VIAL IV PRN (18:59)
--- NOTE | 2017-04-24 19:42 | BRIEFOPN ---
Brief Operative Note - Surgery Procedures: Procedures Pre-OP Diagnoses: skin lesions Post-op Diagnosis: same Procedure: excision of 4 skin lesions with advancement flaps Surgeon: Zee Asst: none Anethesia: local MAC Sanito EBL: minimal IVF: crystalloid Specimen: 1. L flank, 2. mid lower back 3. upper R flank, 4. lower R flank Drains: none
[2017-04-24 22:01] VITALS: BP 141/69
== END 2017-04-24 21:05 ==
LOC: OR 13:24
PROVIDERS: ATTEND Surgery
DX: L82.0 Inflamed seborrheic keratosis (principal); L98.9 Disorder of the skin and subcutaneous tissue, unspecified; Z85.828 Personal history of other malignant neoplasm of skin; E11.9 Type 2 diabetes mellitus without complications; Z79.4 Long term (current) use of insulin; Z79.84 Long term (current) use of oral hypoglycemic drugs; I10 Essential (primary) hypertension; E78.5 Hyperlipidemia, unspecified; Z87.891 Personal history of nicotine dependence; J44.9 Chronic obstructive pulmonary disease, unspecified; F03.90 Unspecified dementia, unspecified severity, without behavioral disturbance, psychotic disturbance, mood disturbance, and anxiety; Z86.73 Personal history of transient ischemic attack (TIA), and cerebral infarction without residual deficits; K21.9 Gastro-esophageal reflux disease without esophagitis
CPT/HCPCS: 88304; 88305; A9270-GY; J2001; J2250; J2270; J3010

== ENCOUNTER 2020-04-16 14:48 | Inpatient (IN) ==
[2020-04-16] MEDS ORDERED: Aspirin EC 81 mg TAB.EC (enteric coated) PO ONE (14:56)
[2020-04-16 15:19] LABS: ABS Eosinophils 0.4 10^3/ul (0-0.6); ABS Lymphocytes 2.8 10^3/ul (1.0-4.8); ABS Monocytes 0.7 10^3/ul (0-0.8); ABS Neutrophils 4.5 10^3/ul (1.5-7.7); Eosinophil % 4.3 %; Hematocrit 36 % (42-52); Hemoglobin 11.8 g/dL (14.0-18.0); Lymphocyte % 33.2 %; Mean Corpuscular HGB Conc 33 g/dL (31-36); Mean Corpuscular Hemoglobin 26 pg (27-31); Mean Corpuscular Volume 80 fL (80-94); Mean Platelet Volume 6.6 fL (7.4-10.4); Platelet Count 237 10^3/uL (150-450); Red Blood Count 4.49 10^6 /uL (4.18-5.48); Red Cell Distribution Width 16 % (10-15); White Blood Count 8.4 10^3/uL (3.5-10.8)
[2020-04-16 15:29] LABS: Activated Partial Thrombo Time 27.9 seconds (26.0-38.0); INR 1.09 (0.82-1.09)
[2020-04-16 15:37] LABS: ALT 13 U/L (7-52); AST 13 U/L (13-39); Albumin 3.8 g/dL (3.2-5.2); Albumin/Globulin Ratio 1.2 (1-3); Alkaline Phosphatase 47 U/L (34-104); Anion Gap 6 mmol/L (2-11); BUN/Creatinine Ratio 20.2 (8-20); Blood Urea Nitrogen 21 mg/dL (6-24); CO2 Carbon Dioxide 33 mmol/L (22-32); Calcium 9.4 mg/dL (8.6-10.3); Chloride 99 mmol/L (101-111); Creatine Kinase 36 U/L (10-223); EGFR African American 82.9 (>60); EGFR Non-African American 68.5 (>60); Globulin 3.1 g/dL (2-4); Glucose 183 mg/dL (70-100); Magnesium 1.9 mg/dL (1.9-2.7); Sodium 138 mmol/L (135-145); Total Protein 6.9 g/dL (6.4-8.9)
[2020-04-16 15:39] LABS: Troponin I 0.01 ng/mL (<0.03)
[2020-04-16 15:41] LABS: CKMB ng/mL 1.9 ng/mL (0.6-6.3)
[2020-04-16 16:33] LABS: Urine Appearance Clear; Urine Bilirubin Negative (Negative); Urine Blood Negative (Negative); Urine Color Yellow; Urine Glucose 1+(50 mg/dL) (Negative); Urine Ketones Negative (Negative); Urine Nitrite Negative (Negative); Urine Protein 1+(30 mg/dL) (Negative); Urine Specific Gravity 1.021 (1.010-1.030); Urine Urobilinogen Negative (Negative)
[2020-04-16 16:35] LABS: TSH Ultra Thyroid Stim Horm 1.96 mcIU/mL (0.34-5.60)
[2020-04-16 16:57] LABS: Urine Bacteria Absent (Absent); Urine Red Blood Cell Trace(0-2/hpf) (Absent); Urine Squamous Epithelial Cell Present (Absent); Urine White Blood Cell Absent (Absent)
[2020-04-16] MEDS ORDERED: Ondansetron 4 mg VIAL 2 MG/ML 2 ml VIAL IV PRN (17:10)
[2020-04-16 17:19] LABS: C Reactive Protein 3.93 mg/L (<8.01)
[2020-04-16] MEDS ORDERED: Dextrose 50% Syringe 50 ml 25 GM/50 ML SYRINGE IV PUSH PRN (17:36)
[2020-04-16] MEDS ORDERED: Iodixanol (CONTRAST) 320 MG/ML 100 ML SDV IV ONE (17:48)
[2020-04-16 18:08] LABS: % Iron Saturation 10 % (15-55); Iron 40 ug/dL (50-212); Total Iron Binding Capacity 399 mcg/dL (250-450); Transferrin 285 mg/dL (203-362); Unsaturated Iron Binding < 384 ug/dL
[2020-04-16] MEDS: HYDROcodone/ACETAMIN 5/325 mg TAB PO SCH (21:17)
[2020-04-16] MEDS: Enoxaparin 40 MG/0.4 ML SYR SUBCUT SCH (21:18)
[2020-04-17] MEDS: HYDROcodone/ACETAMIN 5/325 mg TAB PO SCH ×4 (01:50→18:26)
[2020-04-17 05:35] LABS: ABS Basophils 0.1 10^3/ul (0-0.2); ABS Eosinophils 0.5 10^3/ul (0-0.6); ABS Lymphocytes 3.2 10^3/ul (1.0-4.8); ABS Monocytes 0.7 10^3/ul (0-0.8); Hematocrit 35 % (42-52); Hemoglobin 11.4 g/dL (14.0-18.0); Mean Corpuscular HGB Conc 33 g/dL (31-36); Mean Corpuscular Hemoglobin 26 pg (27-31); Mean Corpuscular Volume 80 fL (80-94); Mean Platelet Volume 6.3 fL (7.4-10.4); Platelet Count 222 10^3/uL (150-450); Red Blood Count 4.37 10^6 /uL (4.18-5.48); Red Cell Distribution Width 16 % (10-15); White Blood Count 8.5 10^3/uL (3.5-10.8)
[2020-04-17 05:55] LABS: BUN/Creatinine Ratio 20.2 (8-20); Calcium 8.8 mg/dL (8.6-10.3); EGFR African American 87.8 (>60); EGFR Non-African American 72.6 (>60); Magnesium 1.9 mg/dL (1.9-2.7); Potassium 3.5 mmol/L (3.5-5.0)
[2020-04-17 06:16] LABS: Ferritin 13.9 ng/mL (24-336)
[2020-04-17] MEDS: Aspirin EC 81 mg TAB.EC (enteric coated) PO SCH (08:15)
[2020-04-17] MEDS: DULoxetine DR 60 mg CAP PO SCH (08:15)
[2020-04-17] MEDS: Insulin GLARGINE 100 un/ml 10 ml VIAL SUBCUT SCH (08:54)
[2020-04-17] MEDS ORDERED: Furosemide 20 mg/2 ml IV VIAL IV SLOW PU ONE (09:29)
[2020-04-17] MEDS: Latanoprost 0.005% 2.5 ml BTL BOTH EYES SCH (10:20)
[2020-04-17] MEDS: Enoxaparin 40 MG/0.4 ML SYR SUBCUT SCH (18:26)
[2020-04-18] MEDS: HYDROcodone/ACETAMIN 5/325 mg TAB PO SCH ×3 (00:30→11:32)
[2020-04-18] MEDS: Aspirin EC 81 mg TAB.EC (enteric coated) PO SCH (08:01)
[2020-04-18] MEDS: DULoxetine DR 60 mg CAP PO SCH (08:01)
[2020-04-18] MEDS ORDERED: Aminophylline 25 MG/ML VIAL ONE (08:45)
[2020-04-18] MEDS ORDERED: Regadenoson 0.4 MG/5 ML SYRINGE ONE (08:45)
[2020-04-18] MEDS ORDERED: Perflutren Lipid Microsphere 3 ML VIAL ONE (09:32)
[2020-04-18] MEDS: Insulin GLARGINE 100 un/ml 10 ml VIAL SUBCUT SCH (10:36)
[2020-04-18] MEDS: Latanoprost 0.005% 2.5 ml BTL BOTH EYES SCH (10:38)
[2020-04-18 11:36] VITALS: BP 158/85
== END 2020-04-18 14:35 | DRG 291 ==
LOC: ED 14:48 → MED 14:48 → MEDTELE 04-17 20:18
PROVIDERS: ADMIT Internal Medicine; ATTEND Internal Medicine

== ENCOUNTER 2021-06-12 16:46 | Inpatient (IN) ==
[2021-06-12 17:25] LABS: ABS Lymphocytes 1.1 10^3/ul (1.0-4.8); ABS Monocytes 0.8 10^3/ul (0-0.8); ABS Neutrophils 7.3 10^3/ul (1.5-7.7); Eosinophil % 0.5 %; Hematocrit 38 % (42-52); Lymphocyte % 12.3 %; Mean Corpuscular HGB Conc 34 g/dL (31-36); Mean Corpuscular Hemoglobin 29 pg (27-31); Mean Corpuscular Volume 86 fL (80-94); Mean Platelet Volume 7.2 fL (7.4-10.4); Platelet Count 223 10^3/uL (150-450); Red Blood Count 4.43 10^6 /uL (4.18-5.48); Red Cell Distribution Width 15 % (10-15); White Blood Count 9.3 10^3/uL (3.5-10.8)
[2021-06-12 17:57] LABS: Anion Gap 9 mmol/L (2-11); Blood Urea Nitrogen 30 mg/dL (6-24); CO2 Carbon Dioxide 31 mmol/L (22-32); Chloride 99 mmol/L (101-111); Glucose 225 mg/dL (70-100); Potassium 3.6 mmol/L (3.5-5.0); Sodium 139 mmol/L (135-145)
[2021-06-12 17:58] LABS: ALT 19 U/L (7-52); AST 47 U/L (13-39); Albumin 3.9 g/dL (3.2-5.2); Albumin/Globulin Ratio 1.1 (1-3); Alkaline Phosphatase 50 U/L (35-149); Calcium 9.1 mg/dL (8.6-10.3); Globulin 3.5 g/dL (2-4); Total Protein 7.4 g/dL (6.4-8.9); eGFR CKD-EPI 36.9 (>60)
[2021-06-12 18:03] LABS: Troponin I 0.03 ng/mL (<0.03)
[2021-06-12 18:53] LABS: Urine Appearance Clear; Urine Bilirubin Negative (Negative); Urine Blood Negative (Negative); Urine Color Amber; Urine Glucose Negative (Negative); Urine Ketones Negative (Negative); Urine Nitrite Negative (Negative); Urine Protein 2+(100 mg/dL) (Negative); Urine Specific Gravity 1.018 (1.002-1.030); Urine Urobilinogen Negative (Negative)
[2021-06-12 18:58] LABS: Urine Bacteria Absent (Absent); Urine Red Blood Cell 2+(6-10/hpf) (Absent); Urine Squamous Epithelial Cell Present (Absent); Urine White Blood Cell Trace(0-5/hpf) (Absent)
[2021-06-12] MEDS ORDERED: Levofloxacin 500 MG IVPREMIX 500 MG/100 ML BAG IVPB ONE (19:20)
[2021-06-12 21:59] LABS: C Reactive Protein 112.93 mg/L (<8.01)
[2021-06-12] MEDS: Enoxaparin 30 MG/0.3 ML SYR SUBCUT SCH (23:38)
[2021-06-12] MEDS ORDERED: Furosemide 40 mg/4 ml IV VIAL IV SLOW PU ONE (23:39)
[2021-06-13 00:21] LABS: Vitamin B12 226 pg/mL (180-914)
[2021-06-13] MEDS ORDERED: Furosemide 40 mg/4 ml IV VIAL IV SLOW PU ONE (08:27)
[2021-06-13 09:24] LABS: CO2 Carbon Dioxide 27 mmol/L (22-32); Chloride 102 mmol/L (101-111); Magnesium 1.8 mg/dL (1.9-2.7); Sodium 141 mmol/L (135-145)
[2021-06-13 09:30] LABS: Blood Urea Nitrogen 35 mg/dL (6-24); Glucose 64 mg/dL (70-100); eGFR CKD-EPI 33.1 (>60)
[2021-06-13] MEDS ORDERED: Magnesium Sulfate 2 gm BAG 2 GM/50 ML BAG IVPB ONE (09:36)
[2021-06-13] MEDS ORDERED: Dextrose 50% Syringe 50 ml 25 GM/50 ML SYRINGE IV PUSH PRN (09:37)
[2021-06-13] MEDS ORDERED: Dextrose 50% Syringe 50 ml 25 GM/50 ML SYRINGE IV PUSH ONE (09:39)
[2021-06-13 10:12] LABS: Anion Gap 12 mmol/L (2-11)
[2021-06-13 11:29] LABS: Hematocrit 41 % (42-52); Hemoglobin 13.3 g/dL (14.0-18.0); Mean Corpuscular HGB Conc 33 g/dL (31-36); Mean Corpuscular Hemoglobin 28 pg (27-31); Mean Corpuscular Volume 88 fL (80-94); Red Blood Count 4.68 10^6 /uL (4.18-5.48); Red Cell Distribution Width 15 % (10-15)
[2021-06-13 11:30] LABS: ABS Lymphocytes 1.9 10^3/ul (1.0-4.8); ABS Monocytes 0.9 10^3/ul (0-0.8); ABS Neutrophils 10.1 10^3/ul (1.5-7.7); Eosinophil % 0.1 %; Lymphocyte % 14.8 %; Nucleated Red Blood Cells % 0.1
[2021-06-13 11:53] LABS: Mean Platelet Volume 7.6 fL (7.4-10.4); Platelet Count 211 10^3/uL (150-450)
[2021-06-13] MEDS ORDERED: LORazepam 2 mg VIAL 1 ml IV PUSH ONE ×2 (12:31→12:38)
[2021-06-13] MEDS ORDERED: Lorazepam PYXIS KEY PRN ×4 (12:31→18:03)
[2021-06-13] MEDS ORDERED: LORazepam 2 mg VIAL 1 ml ONE ×2 (12:32→17:55)
[2021-06-13 14:40] LABS: Potassium, Whole Blood 3.9 mmol/L (3.4-4.5)
[2021-06-13] MEDS ORDERED: Perflutren Lipid Microsphere 3 ML VIAL ONE (15:24)
[2021-06-13] MEDS: DULoxetine DR 60 mg CAP PO SCH (16:23)
[2021-06-13] MEDS ORDERED: DOXYcycline IV 100 MG in NS 0.9% 250 ML IVPB ONE (17:00)
[2021-06-13] MEDS ORDERED: cefTRIAXone 1 GM/50 ML PREMIX.BAG IV ONE (17:00)
[2021-06-13] MEDS ORDERED: LORazepam 2 mg VIAL 1 ml IM ONE (17:54)
[2021-06-13] MEDS: LORazepam 2 mg VIAL 1 ml IV PUSH ONE ×2 (18:06)
[2021-06-13] MEDS ORDERED: cefTRIAXone 1 gm/50 mL NS BAG 1 GM/50 ML BAG IVPB SCH (19:00)
[2021-06-13] MEDS ORDERED: Azithromycin 500 mg/250 ml NS 500 MG/250 ML BAG IVPB SCH (19:00)
[2021-06-13 19:51] LABS: Potassium 3.7 mmol/L (3.5-5.0); eGFR CKD-EPI 31.8 (>60)
[2021-06-13] MEDS ORDERED: NS 0.9% 1000 ml BAG 1,000 ML IV ONE (20:13)
[2021-06-13] MEDS: Enoxaparin 30 MG/0.3 ML SYR SUBCUT SCH (20:18)
[2021-06-13] MEDS ORDERED: NS 0.9% 1000 ml BAG 1,000 ML IV SCH (20:30)
[2021-06-13 21:06] LABS: Calcium 8.7 mg/dL (8.6-10.3)
[2021-06-14 05:48] LABS: ABS Basophils 0.1 10^3/ul (0-0.2); ABS Eosinophils 0.1 10^3/ul (0-0.6); ABS Monocytes 0.9 10^3/ul (0-0.8); ABS Neutrophils 7.5 10^3/ul (1.5-7.7); Hematocrit 38 % (42-52); Hemoglobin 12.2 g/dL (14.0-18.0); Lymphocyte % 18.7 %; Mean Corpuscular HGB Conc 32 g/dL (31-36); Mean Corpuscular Hemoglobin 29 pg (27-31); Mean Corpuscular Volume 88 fL (80-94); Mean Platelet Volume 7.6 fL (7.4-10.4); Nucleated Red Blood Cells % 0.2; Platelet Count 234 10^3/uL (150-450); Red Blood Count 4.27 10^6 /uL (4.18-5.48); Red Cell Distribution Width 15 % (10-15); White Blood Count 10.5 10^3/uL (3.5-10.8)
[2021-06-14 06:10] LABS: Calcium 8.4 mg/dL (8.6-10.3); Potassium 3.6 mmol/L (3.5-5.0); eGFR CKD-EPI 43.4 (>60)
[2021-06-14] MEDS: DOXYcycline 100 MG in NS 0.9% 250 ml 250 ML IVPB SCH ×2 (06:34→20:18)
[2021-06-14] MEDS ORDERED: NS 0.9% 1000 ml BAG 1,000 ML IV SCH (07:30)
[2021-06-14] MEDS: DULoxetine DR 60 mg CAP PO SCH (08:11)
[2021-06-14] MEDS ORDERED: Albuterol HFA INHALER 8 gm MDI INH PRN (10:36)
[2021-06-14] MEDS ORDERED: Mometasone 220 MCG MDI INH SCH (10:39)
[2021-06-14] MEDS ORDERED: Haloperidol 5 mg/ml SDV IV/IM 5 MG/ML AMP IM ONE (10:59)
[2021-06-14] MEDS ORDERED: Mometasone 110 MCG MDI INH SCH (11:00)
[2021-06-14 12:35] LABS: C Reactive Protein 178.65 mg/L (<8.01)
[2021-06-14] MEDS: Mometasone 220 MCG MDI INH SCH (13:23)
[2021-06-14 16:20] LABS: Calcium 8.8 mg/dL (8.6-10.3); Potassium 3.7 mmol/L (3.5-5.0); eGFR CKD-EPI 54.8 (>60)
[2021-06-14] MEDS: cefTRIAXone 1 gm/50 mL NS BAG 1 GM/50 ML BAG IVPB SCH (18:02)
[2021-06-14] MEDS ORDERED: Dextrose 50% Syringe 50 ml 25 GM/50 ML SYRINGE IV PUSH PRN (18:25)
[2021-06-14] MEDS ORDERED: Cyanocobalamin INJ 1,000 MCG/ML VIAL 1 ML VIAL IM ONE (19:30)
[2021-06-14] MEDS: Enoxaparin 30 MG/0.3 ML SYR SUBCUT SCH (20:14)
[2021-06-15 06:08] LABS: Blood Urea Nitrogen 28 mg/dL (6-24); CO2 Carbon Dioxide 28 mmol/L (22-32); Calcium 8.9 mg/dL (8.6-10.3); Chloride 104 mmol/L (101-111); Glucose 236 mg/dL (70-100); Magnesium 1.7 mg/dL (1.9-2.7); eGFR CKD-EPI 73.4 (>60)
[2021-06-15 06:10] LABS: Sodium 146 mmol/L (135-145)
[2021-06-15 06:11] LABS: Anion Gap 14 mmol/L (2-11)
[2021-06-15 06:44] LABS: Potassium Redraw 3.5 mmol/L (3.5-5.0)
[2021-06-15] MEDS: Mometasone 220 MCG MDI INH SCH (07:26)
[2021-06-15] MEDS: Magnesium Sulf 4 GM/100 ML IV 4,000 MG/100 ML BAG IVPB ONE ×2 (07:53→07:54)
[2021-06-15 07:57] LABS: ABS Basophils 0.1 10^3/ul (0-0.2); ABS Eosinophils 0.1 10^3/ul (0-0.6); ABS Lymphocytes 1.6 10^3/ul (1.0-4.8); ABS Monocytes 0.7 10^3/ul (0-0.8); ABS Neutrophils 7.8 10^3/ul (1.5-7.7); Eosinophil % 0.8 %; Hematocrit 39 % (42-52); Hemoglobin 12.9 g/dL (14.0-18.0); Lymphocyte % 15.5 %; Mean Corpuscular HGB Conc 33 g/dL (31-36); Mean Corpuscular Hemoglobin 29 pg (27-31); Mean Corpuscular Volume 87 fL (80-94); Mean Platelet Volume 7.3 fL (7.4-10.4); Platelet Count 238 10^3/uL (150-450); Red Blood Count 4.46 10^6 /uL (4.18-5.48); Red Cell Distribution Width 15 % (10-15); White Blood Count 10.3 10^3/uL (3.5-10.8)
[2021-06-15 08:29] LABS: ALT 18 U/L (7-52); Albumin 3.8 g/dL (3.2-5.2); Alkaline Phosphatase 52 U/L (35-149); Globulin 3.7 g/dL (2-4); Total Protein 7.5 g/dL (6.4-8.9)
[2021-06-15 09:02] LABS: Direct Bilirubin Redraw 0.1 mg/dL (0.03-0.18)
[2021-06-15] MEDS: Insulin GLARGINE 100 un/ml 10 ml VIAL SUBCUT SCH (09:20)
[2021-06-15] MEDS: DULoxetine DR 60 mg CAP PO SCH (09:24)
[2021-06-15] MEDS ORDERED: HYDROcodone/ACETAMIN 5/325 mg TAB PO PRN (09:34)
[2021-06-15] MEDS: DOXYcycline 100 MG in NS 0.9% 250 ml 250 ML IVPB SCH ×2 (11:44→20:04)
[2021-06-15] MEDS ORDERED: Senna TAB 8.6 mg TAB PO PRN (14:47)
[2021-06-15] MEDS ORDERED: Magnesium Hydroxide LIQ 30 ML UDC PO PRN (15:08)
[2021-06-15] MEDS ORDERED: Dextran 70/Hypromellose Tears Eye Drops 15 ml BTL (for Artificials Tears) BOTH EYES PRN (15:12)
[2021-06-15] MEDS: Latanoprost 0.005% 2.5 ml BTL BOTH EYES SCH (15:22)
[2021-06-15] MEDS: Lidocaine PATCH 5% PATCH TRANSDERM SCH (15:22)
[2021-06-15] MEDS: HYDROcodone/ACETAMIN 5/325 mg TAB PO SCH ×2 (15:23→22:23)
[2021-06-15 16:12] LABS: Ferritin 181.5 ng/mL (24-336)
[2021-06-15] MEDS: cefTRIAXone 1 gm/50 mL NS BAG 1 GM/50 ML BAG IVPB SCH (17:18)
[2021-06-15] MEDS: Enoxaparin 30 MG/0.3 ML SYR SUBCUT SCH (20:03)
[2021-06-15] MEDS ORDERED: Insulin GLARGINE 100 un/ml 10 ml VIAL SUBCUT SCH (22:00)
[2021-06-16] MEDS ORDERED: Lorazepam PYXIS KEY PRN (03:21)
[2021-06-16] MEDS ORDERED: LORazepam 2 mg VIAL 1 ml IV PUSH ONE (03:22)
[2021-06-16] MEDS: hydrALAZINE 20 mg/ml 1 ML Vial IV IV SLOW PU PRN (04:59)
[2021-06-16] MEDS: DOXYcycline 100 MG in NS 0.9% 250 ml 250 ML IVPB SCH ×2 (06:09→21:15)
[2021-06-16 07:22] LABS: Potassium 3.4 mmol/L (3.5-5.0)
[2021-06-16 07:27] LABS: eGFR CKD-EPI 85.3 (>60)
[2021-06-16] MEDS: Lidocaine PATCH 5% PATCH TRANSDERM SCH (08:01)
[2021-06-16] MEDS: Insulin GLARGINE 100 un/ml 10 ml VIAL SUBCUT SCH ×2 (08:02→21:19)
[2021-06-16] MEDS: DULoxetine DR 60 mg CAP PO SCH (08:03)
[2021-06-16] MEDS: Insulin GLARGINE 100 un/ml 10 ml VIAL SUBCUT ONE ×2 (08:04→10:30)
[2021-06-16] MEDS: HYDROcodone/ACETAMIN 5/325 mg TAB PO SCH ×3 (08:04→21:10)
[2021-06-16] MEDS: Mometasone 220 MCG MDI INH SCH (08:06)
[2021-06-16] MEDS: Latanoprost 0.005% 2.5 ml BTL BOTH EYES SCH (08:11)
[2021-06-16] MEDS ORDERED: Potassium Chlor 20 meq TAB.ER PO ONE (08:13)
[2021-06-16 09:32] LABS: C Reactive Protein 91.33 mg/L (<8.01)
[2021-06-16 12:57] LABS: Rapid COVID-19 Molecular Undetected (Undetected)
[2021-06-16] MEDS: cefTRIAXone 1 gm/50 mL NS BAG 1 GM/50 ML BAG IVPB SCH (17:25)
[2021-06-16] MEDS: Enoxaparin 30 MG/0.3 ML SYR SUBCUT SCH (21:19)
[2021-06-17 06:15] LABS: Magnesium 1.8 mg/dL (1.9-2.7); Potassium 3.2 mmol/L (3.5-5.0); eGFR CKD-EPI 78.9 (>60)
[2021-06-17] MEDS ORDERED: Magnesium Sulfate IV 3 GM in NS 0.9% 100 ml BAG 100 ML IVPB ONE (06:55)
[2021-06-17] MEDS ORDERED: Potassium Chlor 20 meq TAB.ER PO ONE ×2 (06:56→13:49)
[2021-06-17] MEDS ORDERED: Magnesium Sulfate 2 GM IV (Premix) IVPB ONE (07:30)
[2021-06-17] MEDS: Mometasone 220 MCG MDI INH SCH (07:48)
[2021-06-17] MEDS: DULoxetine DR 60 mg CAP PO SCH (08:20)
[2021-06-17] MEDS: hydrALAZINE 20 mg/ml 1 ML Vial IV IV SLOW PU PRN (08:21)
[2021-06-17] MEDS: HYDROcodone/ACETAMIN 5/325 mg TAB PO SCH ×3 (08:22→21:19)
[2021-06-17] MEDS: DOXYcycline 100 MG in NS 0.9% 250 ml 250 ML IVPB SCH ×3 (08:23→22:39)
[2021-06-17] MEDS ORDERED: Magnesium Sulfate 1 GM IV 1 GM/100 ML BAG IV ONE (08:30)
[2021-06-17] MEDS: Lidocaine PATCH 5% PATCH TRANSDERM SCH (08:48)
[2021-06-17] MEDS: Insulin GLARGINE 100 un/ml 10 ml VIAL SUBCUT SCH ×2 (08:58→21:29)
[2021-06-17] MEDS: Latanoprost 0.005% 2.5 ml BTL BOTH EYES SCH (10:47)
[2021-06-17] MEDS: cefTRIAXone 1 gm/50 mL NS BAG 1 GM/50 ML BAG IVPB SCH (17:17)
[2021-06-17] MEDS ORDERED: Dextrose 50% Syringe 50 ml 25 GM/50 ML SYRINGE IV PUSH PRN ×2 (17:37→17:43)
[2021-06-17] MEDS: Enoxaparin 40 MG/0.4 ML SYR SUBCUT SCH (21:29)
[2021-06-17] MEDS ORDERED: Lorazepam PYXIS KEY PRN (21:56)
[2021-06-17] MEDS ORDERED: LORazepam 2 mg VIAL 1 ml IV PUSH ONE (21:56)
[2021-06-18 07:05] LABS: Calcium 8.5 mg/dL (8.6-10.3); Phosphorus 2.7 mg/dL (2.5-5.0); eGFR CKD-EPI 85.6 (>60)
[2021-06-18] MEDS: Mometasone 220 MCG MDI INH SCH (07:24)
[2021-06-18] MEDS: DULoxetine DR 60 mg CAP PO SCH (08:39)
[2021-06-18] MEDS: Potassium Chlor 20 meq TAB.ER PO SCH ×2 (08:40→14:17)
[2021-06-18] MEDS: Lidocaine PATCH 5% PATCH TRANSDERM SCH (08:40)
[2021-06-18] MEDS: HYDROcodone/ACETAMIN 5/325 mg TAB PO SCH ×3 (08:40→21:28)
[2021-06-18] MEDS: Insulin GLARGINE 100 un/ml 10 ml VIAL SUBCUT SCH ×2 (08:41→21:27)
[2021-06-18] MEDS: DOXYcycline 100 MG in NS 0.9% 250 ml 250 ML IVPB SCH ×2 (08:42→19:25)
[2021-06-18] MEDS: Latanoprost 0.005% 2.5 ml BTL BOTH EYES SCH (12:14)
[2021-06-18] MEDS: cefTRIAXone 1 gm/50 mL NS BAG 1 GM/50 ML BAG IVPB SCH (18:12)
[2021-06-18] MEDS: Enoxaparin 40 MG/0.4 ML SYR SUBCUT SCH (21:27)
[2021-06-19 06:26] VITALS: BP 164/95
[2021-06-19] MEDS: Mometasone 220 MCG MDI INH SCH ×2 (07:03→07:04)
[2021-06-19 07:47] LABS: Calcium 8.8 mg/dL (8.6-10.3); Magnesium 1.8 mg/dL (1.9-2.7); Potassium 3.9 mmol/L (3.5-5.0)
[2021-06-19] MEDS ORDERED: Magnesium Sulfate IV 3 GM in NS 0.9% 100 ml BAG 100 ML IVPB ONE (07:56)
[2021-06-19] MEDS: Lidocaine PATCH 5% PATCH TRANSDERM SCH (08:11)
[2021-06-19] MEDS: DOXYcycline 100 MG in NS 0.9% 250 ml 250 ML IVPB SCH (08:12)
[2021-06-19] MEDS: HYDROcodone/ACETAMIN 5/325 mg TAB PO SCH (08:13)
[2021-06-19] MEDS: DULoxetine DR 60 mg CAP PO SCH (08:13)
[2021-06-19] MEDS: Insulin GLARGINE 100 un/ml 10 ml VIAL SUBCUT SCH (08:28)
[2021-06-19] MEDS: Latanoprost 0.005% 2.5 ml BTL BOTH EYES SCH (08:29)
[2021-06-19] MEDS ORDERED: Magnesium Sulfate 2 GM IV (Premix) IVPB ONE (09:00)
[2021-06-19] MEDS ORDERED: Magnesium Sulfate 1 GM IV 1 GM/100 ML BAG IV ONE (10:00)
[2021-06-19 10:36] LABS: Rapid COVID-19 Molecular Undetected (Undetected)
== END 2021-06-19 11:50 | DRG 193 ==
LOC: ED 16:46 → EDHOLD 21:11 → SUATTDRO 21:11 → MED 06-13 17:42
PROVIDERS: ADMIT Internal Medicine; ATTEND Student in an Organized Health Care Education/Training Program

== ENCOUNTER 2021-12-11 20:15 | Inpatient (IN) ==
[2021-12-11] MEDS ORDERED: Dextrose 50% Syringe 50 ml 25 GM/50 ML SYRINGE IV PUSH ONE (20:31)
[2021-12-11 21:29] LABS: ABS Eosinophils 0.1 10^3/ul (0-0.6); ABS Lymphocytes 1.3 10^3/ul (1.0-4.8); ABS Monocytes 0.8 10^3/ul (0-0.8); ABS Neutrophils 9.1 10^3/ul (1.5-7.7); Eosinophil % 0.5 %; Hematocrit 36 % (42-52); Lymphocyte % 11.6 %; Mean Corpuscular HGB Conc 33 g/dL (31-36); Mean Corpuscular Hemoglobin 29 pg (27-31); Mean Corpuscular Volume 86 fL (80-94); Mean Platelet Volume 7.3 fL (7.4-10.4); Platelet Count 194 10^3/uL (150-450); Red Cell Distribution Width 14 % (10-15); White Blood Count 11.3 10^3/uL (3.5-10.8)
[2021-12-11 21:53] LABS: Albumin 3.7 g/dL (3.2-5.2); Albumin/Globulin Ratio 1.3 (1-3); Globulin 2.8 g/dL (2-4); Potassium 3.4 mmol/L (3.5-5.0); Total Bilirubin 0.3 mg/dL (0.2-1.0); Total Protein 6.5 g/dL (6.4-8.9)
[2021-12-11] MEDS ORDERED: Cefepime 1 GM in Dextrose 1 GM/50 ML BAG IV ONE (22:12)
[2021-12-11] MEDS ORDERED: Piperacillin/Tazobac ADVAN 3.375 GM in NS 0.9% 100 ml BAG 100 ML IV ONE (23:21)
[2021-12-11] MEDS ORDERED: Vancomycin per Pharmacy 1 EA NOTE FOLLOW UP PRN (23:41)
[2021-12-11] MEDS ORDERED: Zosyn per Pharmacy NOTE FOLLOW UP SCH (23:45)
[2021-12-11] MEDS ORDERED: Vancomycin 1,500 MG in NS 0.9% 250 ml 250 ML IVPB ONE (23:45)
[2021-12-12 00:28] LABS: C Reactive Protein 4.82 mg/L (<8.01)
[2021-12-12 00:57] LABS: Magnesium 1.8 mg/dL (1.9-2.7)
[2021-12-12] MEDS: KCL 20 MEQ/100 ML IVPREMIX 20 MEQ/100 ML BAG IV SCH ×2 (02:52→04:58)
[2021-12-12] MEDS ORDERED: TAZOBACTAM IV ONE (04:00)
[2021-12-12] MEDS ORDERED: PIPERACILLIN IV ONE (04:00)
[2021-12-12 04:29] LABS: ABS Eosinophils 0.1 10^3/ul (0-0.6); ABS Lymphocytes 3.4 10^3/ul (1.0-4.8); ABS Monocytes 0.6 10^3/ul (0-0.8); ABS Neutrophils 6.1 10^3/ul (1.5-7.7); Eosinophil % 1.3 %; Hematocrit 40 % (42-52); Hemoglobin 13.2 g/dL (14.0-18.0); Lymphocyte % 32.8 %; Mean Corpuscular HGB Conc 33 g/dL (31-36); Mean Corpuscular Hemoglobin 28 pg (27-31); Mean Corpuscular Volume 86 fL (80-94); Mean Platelet Volume 7.1 fL (7.4-10.4); Nucleated Red Blood Cells % 0.1; Platelet Count 228 10^3/uL (150-450); Red Blood Count 4.64 10^6 /uL (4.18-5.48); Red Cell Distribution Width 14 % (10-15); White Blood Count 10.3 10^3/uL (3.5-10.8)
[2021-12-12 04:47] LABS: Calcium 9.4 mg/dL (8.6-10.3); Magnesium 1.6 mg/dL (1.9-2.7); Potassium 3.9 mmol/L (3.5-5.0); eGFR CKD-EPI 72.5 (>60)
[2021-12-12] MEDS ORDERED: Magnesium Sulfate 2 gm BAG 2 GM/50 ML BAG IVPB ONE (06:07)
[2021-12-12] MEDS: Enoxaparin 40 MG/0.4 ML SYR SUBCUT SCH (06:32)
[2021-12-12] MEDS ORDERED: ZOSYN 3.375 GM Q8H per EXTENDED INFUSION IV SCH (08:30)
[2021-12-12] MEDS: DULoxetine DR 30 mg CAP PO SCH (09:22)
[2021-12-12] MEDS: Furosemide 40 mg/4 ml IV VIAL IV SCH (10:04)
[2021-12-12] MEDS: Latanoprost 0.005% 2.5 ml BTL BOTH EYES SCH (10:07)
[2021-12-12] MEDS ORDERED: Vancomycin 750 MG in NS 0.9% 250 ML IVPB SCH (13:00)
[2021-12-13] MEDS: Enoxaparin 40 MG/0.4 ML SYR SUBCUT SCH (05:36)
[2021-12-13 09:23] LABS: ABS Basophils 0.1 10^3/ul (0-0.2); ABS Lymphocytes 1.9 10^3/ul (1.0-4.8); ABS Monocytes 0.7 10^3/ul (0-0.8); ABS Neutrophils 6.9 10^3/ul (1.5-7.7); Eosinophil % 0.2 %; Hematocrit 39 % (42-52); Hemoglobin 13.1 g/dL (14.0-18.0); Lymphocyte % 19.7 %; Mean Corpuscular HGB Conc 34 g/dL (31-36); Mean Corpuscular Hemoglobin 29 pg (27-31); Mean Corpuscular Volume 87 fL (80-94); Mean Platelet Volume 7.3 fL (7.4-10.4); Platelet Count 256 10^3/uL (150-450); Red Blood Count 4.53 10^6 /uL (4.18-5.48); Red Cell Distribution Width 15 % (10-15); White Blood Count 9.5 10^3/uL (3.5-10.8)
[2021-12-13] MEDS: DULoxetine DR 30 mg CAP PO SCH ×2 (09:38→10:29)
[2021-12-13] MEDS: Latanoprost 0.005% 2.5 ml BTL BOTH EYES SCH (09:44)
[2021-12-13 10:05] LABS: Calcium 9.6 mg/dL (8.6-10.3); Potassium 4.2 mmol/L (3.5-5.0); eGFR CKD-EPI 43.7 (>60)
[2021-12-13] MEDS: Furosemide 40 mg/4 ml IV VIAL IV SCH (10:44)
[2021-12-13] MEDS: SITAGLIPTIN 25 MG PO SCH (12:11)
[2021-12-13] MEDS ORDERED: Vancomycin Trough Check NOTE FOLLOW UP ONE (12:30)
[2021-12-13] MEDS ORDERED: Magnesium Hydroxide LIQ 30 ML UDC PO PRN (19:12)
[2021-12-14] MEDS: Enoxaparin 40 MG/0.4 ML SYR SUBCUT SCH (05:28)
[2021-12-14 05:52] LABS: Calcium 9.2 mg/dL (8.6-10.3); Magnesium 1.9 mg/dL (1.9-2.7); Phosphorus 3.5 mg/dL (2.5-5.0); Potassium 3.8 mmol/L (3.5-5.0); eGFR CKD-EPI 50.2 (>60)
[2021-12-14] MEDS: DULoxetine DR 30 mg CAP PO SCH (08:38)
[2021-12-14] MEDS: Latanoprost 0.005% 2.5 ml BTL BOTH EYES SCH (09:14)
[2021-12-14] MEDS: SITAGLIPTIN 25 MG PO SCH (09:14)
[2021-12-14 20:47] VITALS: BP 111/57
== END 2021-12-14 21:30 | DRG 948 ==
LOC: ED 20:15 → SUATTDRO 23:15 → EDHOLD 23:15 → MEDTELE 12-12 17:46
PROVIDERS: ADMIT Internal Medicine; ATTEND Internal Medicine